=== PATIENT | female | born 1955 | race Caucasian/White ===

== ENCOUNTER → 2023-09-20 13:47 | Outpatient (REF) | payer MEDICARE, OTHER, SELFPAY | LOC: WDC 13:47 | PROVIDERS: ATTENDING PHYSICIAN Family Medicine | DX: M81.0 Age-related osteoporosis without current pathological fracture (principal); Z12.31 Encounter for screening mammogram for malignant neoplasm of breast | CPT/HCPCS: 77063; 77067; 77080 ==

== ENCOUNTER → 2023-11-08 13:49 | Outpatient (REF) | payer MEDICARE, OTHER, SELFPAY | LOC: RCS 13:49 | PROVIDERS: ATTENDING PHYSICIAN Internal Medicine Interventional Cardiology; FAMILY PHYSICIAN Family Medicine | DX: I10 Essential (primary) hypertension (principal) | CPT/HCPCS: 93306 ==

== ENCOUNTER → 2023-11-30 10:09 | Outpatient (REF) | payer MEDICARE, OTHER, SELFPAY ==
[2023-11-30 11:25] LABS: % Basophils 0.8 % (0-2); % Eosinophils 1.1 % (0-6); % Immature Granulocytes 0.4 % (0-0.5); % Monocytes 11.7 % (1.7-9.3); Absolute Basophils 0.1 10^3/uL (0-0.2); Absolute Eosinophils 0.1 10^3/uL (0-0.7); Absolute Lymphocytes 1.5 10^3/uL (1.2-3.4); Absolute Neutrophils 5.6 10^3/uL (1.4-6.5); Hematocrit 35.6 % (37.0-47.0); Hemoglobin 12.1 g/dL (12.0-16.0); Mean Corpuscular Hgb 31.3 pg (27.0-31.0); Mean Platelet Volume 8.4 fL (7.4-10.4); Nucleated Red Blood Cells % 0 %; Platelet Count 243 10^3/uL (130-400); Red Blood Cell Count 3.87 10^6/uL (4.20-5.40); Red Cell Dist. Width 12.3 % (11.5-14.5); White Blood Cell Count 8.3 10^3/uL (4.8-10.8)
[2023-11-30 12:09] LABS: ALT (SGPT) 18 U/L (0-35); AST (SGOT) 23 U/L (14-36); Albumin 4.3 g/dl (3.5-5.0); Alkaline Phosphatase 45 U/L (38-126); Blood Urea Nitrogen 9 mg/dl (7-17); Calcium 9.5 mg/dl (8.4-10.2); Carbon Dioxide 24 mmol/L (22-30); Chloride 100 mmol/L (98-107); Glucose 94 mg/dl (70-99); HDL Cholesterol 67 mg/dl; LDL Cholesterol, Calculated 68 mg/dl; Potassium 4.1 mmol/L (3.5-5.1); Sodium 134 mmol/L (135-145); Total Bilirubin 0.6 mg/dl (0.2-1.3); Total Cholesterol 164 mg/dl (50-199); Total Protein 6.2 g/dl (6.3-8.2); Triglyceride 149 mg/dl (10-149); Very Low Density Lipoprotein 29 mg/dl (0-30); eGFR > 60.00
[2023-11-30 12:48] LABS: Glycohemoglobin (HgbA1c) 6.1 % (4.0-5.6)
== END ==
LOC: REG 10:09
PROVIDERS: ATTENDING PHYSICIAN Internal Medicine Interventional Cardiology; FAMILY PHYSICIAN Family Medicine; REFERRING PHYSICIAN Internal Medicine Critical Care Medicine
DX: I10 Essential (primary) hypertension (principal); Z01.812 Encounter for preprocedural laboratory examination; R91.8 Other nonspecific abnormal finding of lung field; R73.02 Impaired glucose tolerance (oral)
CPT/HCPCS: 36415; 80053; 80061; 83036; 85025

== ENCOUNTER → 2023-12-02 14:50 | Outpatient (REF) | payer MEDICARE, OTHER, SELFPAY | LOC: RAD 14:50 | PROVIDERS: ATTENDING PHYSICIAN Internal Medicine Gastroenterology; FAMILY PHYSICIAN Family Medicine | DX: K57.92 Diverticulitis of intestine, part unspecified, without perforation or abscess without bleeding (principal) | CPT/HCPCS: 74177; Q9967 ==

== ENCOUNTER → 2023-12-07 12:42 | Outpatient (REF) | payer MEDICARE, OTHER, SELFPAY ==
[2023-12-07 15:41] LABS: INR 1.06; PT 13.8 Sec (11.4-14.6)
[2023-12-07 15:42] LABS: APTT 32.7 Sec (23.4-35.0)
== END ==
LOC: RAD 12:42
PROVIDERS: ATTENDING PHYSICIAN Internal Medicine Critical Care Medicine; FAMILY PHYSICIAN Family Medicine
DX: R93.89 Abnormal findings on diagnostic imaging of other specified body structures (principal); R91.8 Other nonspecific abnormal finding of lung field; Z01.812 Encounter for preprocedural laboratory examination
CPT/HCPCS: 36415; 71250; 85610; 85730

== ENCOUNTER 2023-12-14 06:27 | Day surgery (SDC) | payer MEDICARE, OTHER, SELFPAY ==
[2023-12-14] VITALS (11 sets, daily range): BP systolic 121–153; BP diastolic 59–84; BMI 18.3
--- NOTE | 2023-12-14 11:45 | PTCARENOTE ---
Patients ideal body weight is 128 lbs. Patient did IS and her volume was 4000. Patient appears extremely nervous at times. Patient is tearful. Patient states that she is a smoker and would like to quit. Patient provided smoking cessation information
and given a pamphlet from respiratory therapist Carito. Daughter is at the bedside. Will monitor patient.
== END 2023-12-14 16:41 | disposition home or self-care (01) ==
LOC: GI 06:27
PROVIDERS: ATTENDING PHYSICIAN Internal Medicine Critical Care Medicine
DX: C34.31 Malignant neoplasm of lower lobe, right bronchus or lung (principal); R91.8 Other nonspecific abnormal finding of lung field
CPT/HCPCS: 31629; 31628; 31623; 31624; 31627; 31654; 88172; 88173; 88305; 88312; 71045; 76000; 87015; 87070; 87102; 87116; 87205; 88112; 88177; 88333; 94640; C1887

== ENCOUNTER 2024-01-12 08:05 | Inpatient (IN) | payer MEDICARE, OTHER, SELFPAY ==
[2024-01-06 12:24] VITALS: BMI 18.9
[2024-01-06 13:14] LABS: % Basophils 0.4 % (0-2); % Eosinophils 0.3 % (0-6); % Immature Granulocytes 0.3 % (0-0.5); % Lymphocytes 10.1 % (20.5-51.1); % Monocytes 7.3 % (1.7-9.3); % Neutrophils 81.6 % (42.2-75.2); Absolute Monocytes 0.7 10^3/uL (0.1-0.6); Absolute Neutrophils 8.2 10^3/uL (1.4-6.5); Hematocrit 34.7 % (37.0-47.0); Hemoglobin 11.9 g/dL (12.0-16.0); Mean Corp Hgb Conc. 34.3 g/dL (33.0-37.0); Mean Corpuscular Hgb 30.6 pg (27.0-31.0); Mean Corpuscular Volume 89.2 fL (81.0-99.0); Nucleated Red Blood Cells % 0 %; Platelet Count 261 10^3/uL (130-400); Red Blood Cell Count 3.89 10^6/uL (4.20-5.40); Red Cell Dist. Width 12.5 % (11.5-14.5)
[2024-01-06 13:22] LABS: Urine Albumin Negative (Neg - Trace); Urine Bilirubin Negative (Negative); Urine Character Clear (Clear); Urine Color Yellow; Urine Glucose Negative (Negative); Urine Ketone Negative (Negative); Urine Leukocyte Negative (Negative); Urine Nitrite Negative (Negative); Urine Occult Blood 2+ (Negative); Urine Specific Gravity 1.005 (<1.030); Urine Urobilinogen Negative (Neg - 1+); Urine pH 6.5 (5.0-9.0)
[2024-01-06 13:24] LABS: INR 1.07; PT 13.7 Sec (11.4-14.6)
[2024-01-06 13:25] LABS: APTT 30.2 Sec (23.4-35.0)
[2024-01-06 13:30] LABS: ALT (SGPT) 22 U/L (0-35); AST (SGOT) 24 U/L (14-36); Albumin 4.8 g/dl (3.5-5.0); Alkaline Phosphatase 45 U/L (38-126); Blood Urea Nitrogen 9 mg/dl (7-17); Calcium 9.6 mg/dl (8.4-10.2); Carbon Dioxide 24 mmol/L (22-30); Chloride 95 mmol/L (98-107); Direct Bilirubin 0.3 mg/dl (0.0-0.4); Estimated Creatinine Clearance 63 ml/min; Glucose 105 mg/dl (70-99); Potassium 4.4 mmol/L (3.5-5.1); Sodium 128 mmol/L (135-145); Total Bilirubin 0.5 mg/dl (0.2-1.3); Total Protein 6.8 g/dl (6.3-8.2); eGFR > 60.00
[2024-01-06 13:56] LABS: Urine Red Blood Cell 0-2 /HPF (0-2); Urine White Cell None Seen /HPF (0-5)
--- NOTE | 2024-01-06 14:00 | CM ---
Chart reviewed. Met with the patient in PAT. Patient is independent of ADLS, lives alone in a [address] [facility], 1 [place], 0 DME. Patient is going to her daughters house after surgery [id number] [place] [address] Reviewed preoperative and
postoperative instructions and restrictions. Gave patient 2 soaps, along with showering guidelines. Patient is agreeable to a home visit by CT Transitional RN. Plan is for the patient to go to her daughters house with CT Transitional RN.
[2024-01-06 14:29] LABS: Glycohemoglobin (HgbA1c) 5.9 % (4.0-5.6)
[2024-01-12] VITALS (14 sets, daily range): BP systolic 106–162; BP diastolic 45–90; BMI 18.4
[2024-01-12 09:15] LABS: Blood Urea Nitrogen 8 mg/dl (7-17); Calcium 9.5 mg/dl (8.4-10.2); Carbon Dioxide 26 mmol/L (22-30); Chloride 101 mmol/L (98-107); Estimated Creatinine Clearance 72 ml/min; Glucose 95 mg/dl (70-99); Potassium 3.7 mmol/L (3.5-5.1); Sodium 135 mmol/L (135-145); eGFR > 60.00
--- NOTE | 2024-01-12 09:19 | CM ---
Patient in OR today for planned CT Surgery.
Reviewed initial assessment. Pt. resides alone in a 2 story home. She is functionally indep. at baseline w/ ADLs, mobility without use of any assisted device. She will be staying w/ dtr. at DC.
Antic. DC plan is for home w/ CT Transitional Care RN.
CM to follow.
--- NOTE | 2024-01-12 09:56 | PTCARENOTE ---
pt admitted to CVICU, pt states could not use chlorhexidine wash due to skin irritation and used Dial soap instead, ALINA Maynard aware. pt removed Nicotine patch off L upper arm. NPO since midnight. pt washed w/ CHG wipes. VS completed, weight completed.
admission interview completed. home meds reviewed. lab work drawn. Dr. Munoz at bedside to initial site.
[2024-01-12 13:18] LABS: Urine Albumin Negative (Neg - Trace); Urine Bilirubin Negative (Negative); Urine Character Clear (Clear); Urine Color Yellow; Urine Glucose Negative (Negative); Urine Ketone Trace (Negative); Urine Leukocyte Negative (Negative); Urine Nitrite Negative (Negative); Urine Occult Blood 4+ (Negative); Urine Specific Gravity 1.005 (<1.030); Urine Urobilinogen Negative (Neg - 1+)
[2024-01-12] MEDS: ANCEF 10 IV (13:33)
[2024-01-12] MEDS: ANCEF IV (13:33)
[2024-01-12 13:36] LABS: Urine Amorphous Seen
[2024-01-12 13:38] LABS: Urine Hyaline Cast 0-2 /LPF (0-2)
[2024-01-12 14:27] LABS: Glucose - POC 109 mg/dl (65-99); HCO3 - POC 24 mmol/L (21-29); Hematocrit - POC 28 % PCV (37-47); Hemodilution- POC Yes; Hemoglobin Calculated - POC 9.7; Ionized Calcium - POC 1.15 mmol/L (1.12-1.27); PCO2 - POC 67 mmHg (35-45); PO2 - POC 171 mmHg (80-100); Potassium - POC 3.3 mmol/L (3.6-5.0); Sodium - POC 140 mmol/L (135-145); pH - POC 7.17 (7.35-7.45)
[2024-01-12 15:12] LABS: Urine White Cell 0-2 /HPF (0-5)
--- NOTE | 2024-01-12 15:43 | W.PN.CT.SURG ---
CT Surgery Operative Note
-
THORACIC SURGERY OPERATIVE REPORT
Preoperative Diagnosis: Right lower lobe groundglass opacity, scant fragments of adenocarcinoma, ground glass opacity
Postoperative Diagnosis: Same
Procedure(s) Performed:
1. Robotic assisted thoracic surgery (RATS) right lower lobe superior segment extended wedge resection
2. Radical lymphadenectomy
3. Cryo nerve ablation of intercostal spaces 8, 7, 6, 5 with 2 minutes of freezing time each
4. Intercostal nerve block with 5 cc of bupivacaine in each space, 8, 7, 6, 5
Date of Surgery: 01/12/2024
Comorbidities:
1. Moderate emphysema and pulmonary dysfunction, DLCO 57%
2. Active tobacco abuse
3. Malnourished
4. Chronic pain syndrome
5. Anxiety and depression
6. Fibromyalgia
7. Asthma
8. EGD/GERD
9. Diverticulitis
10. Arthritis
11. Raynaud's syndrome
12. Parotiditis
13. Hyperlipidemia
10. Chronic neck and upper back pain
Attending Surgeon: Branden Munoz MD, MS
Assistants: Coleen Ray PA-C (present and necessary to first helper, exchanging robotic instruments, retraction, suction, exposure, suture management, and wound closure under my direction) & Branden Loja PA-C
Anesthesiology: Rustam Gonzalez MD and Nury Mesa CRNA
Scrub and Circulating RNs: An Sorto RN, Brooke Bae RN
Anesthesia: Dual Lumen GETA
EBL: 100 cc
Products: None
Indication(s) for Procedures: This is a 68-year-old female with multiple pulmonary nodules. She underwent recent endoluminal robotic assisted bronchoscopy with EBUS and biopsy of the right upper lobe groundglass opacity/cystic mass demonstrated
adenocarcinoma. Presented diagnosis is adenocarcinoma in situ as there is no obvious solid component. She is an active smoker and was counseled preoperatively to quit smoking. Given the lesion, and her poor pulmonary status, she was offered a
extended wedge resection with a 1 cm margin of the right lower lobe superior posterior lateral segment. She accepted the risk of surgery and so we move forward.
Findings: Her tissue quality was quite poor. There is evidence of chronic smoke inhalation with staining of all 3 lobes. The fissures were relatively well-developed but hypervascular. No obvious lesion was able to be identified on the superficial
surface of the right lower lobe. However based upon CT markings, I performed a very large extended wedge resection along the superior, lateral, posterior segment of the right lower lobe. This was done with multiple loads of green staplers. This
was extracted from the chest cavity and sent for pathological frozen section. Frozen section revealed adenocarcinoma. Further evaluation will be done to confirm whether this is adenocarcinoma in situ versus adenocarcinoma. Of note I was unable to
palpate any solid component once the specimen was out of the chest. The margin was approximately 1 cm including the staple line. Multiple lymph nodes were taken however she only had scant lymph nodes visible. There is no obvious air leak at the
inclusion of the case. There was no loss of tidal volume at the inclusion of the case. Both the raw oblique fissure and staple line was reinforced with pro gel.
Specimen(s):
Station 9, x 1 nodes
Station 8, x 1 nodes
Station 10, x 3 nodes
Station 4, x 1 nodes
Station 7, x 2 nodes
Right lower lobe super/lateral/posterior segment, extended wedge
Description of Procedure: The patient was taken to the operating room. Induction via general anesthesia with endotracheal intubation was performed and peripheral venous access and arterial monitoring were inserted. Their identity and procedure to be
performed were verified and they were positioned with the right side up on the operating table. The patient was then prepped and draped in a sterile fashion. A preoperative time-out was performed with all members of the team present. A Veress
needle was used to insufflate the chest after isolating the lung. An 8 mm port was placed in the midaxillary line at approximately the eighth intercostal space and confirmed to be intrathoracic without significant pulmonary injury. The chest was
surveyed for any evidence of metastatic disease. Patient tolerate insufflation without complication. 2 additional 12 mm trocars were placed on either side under camera guidance and a third 8 mm trocar was placed along the back. A 12 mm grants and contracts assistant
port was placed in the 11th intercostal space above the insertion of the diaphragm. An intercostal nerve block was performed at intercostal spaces 5 through 8.
The thoracic cavity was inspected for evidence of metastatic disease. None was observed. We started with mobilization of the inferior pulmonary ligament. I then developed the oblique fissure between the right lower lobe and the right upper lobe.
Based upon the CT markings, I used the bipolar cautery to laura out an extended wedge segment. This was taken with multiple green load staplers. Specimen was then placed into a small anchor bag and extracted from the chest cavity. It was sent for
intraoperative frozen section which confirmed adenocarcinoma. We worked our way clockwise dissecting out the hilum and harvest any lymph nodes identified. Cryoablation was performed at the above listed intercostal spaces. A chest tube was inserted
and placed laterally towards the apex. Pro-gel was used to reinforce the staple lines, hilum, and raw surface of the oblique fissure. Fibrillar was packed around the hilum. After confirming hemostasis, the lung was fully inflated and all ports were
removed. Incisions were closed in 3 layers including the fascia, dermal, and epidermis. Additional local anesthesia was injected into all incision sites. The skin wound was cleansed and sealed with Dermabond glue.
All instrument, sponge, and needle counts were confirmed to be correct x 2 at the end of the operation. The patient was transferred to the cardiac intensive care unit extubated in critical but stable condition.
I, Dr. Branden Munoz, was present, scrubbed for, and performed all critical elements of this procedure.
Branden Munoz MD, MS
Cardiothoracic Surgeon
[facility]
This operative dictation was created using the [employer] dictation system. Please excuse any grammatical, typographical, or 'sound alike' errors
--- NOTE | 2024-01-12 16:13 | CON.INTV ---
Consultation
Consultation Request
Date/Time Consultation Requested: 01/12/2024 - 1551
Date/Time Consultation Performed: 01/12/2024 - 1610
Requesting Provider: Aleyda Mae PA-C
Performing Provider: Geronimo Rodríguez MD
Reason for Consultation: post-op wedge resection
Medical History
-
Chief Complaint: Elective RLL wedge resection
History of Present Illness:
68-year-old F active tobacco smoker with 0.5PPD with PMHx of emphysema, asthma, GERD, bilateral pulmonary nodules, chronic pain, GERD, PUD and Hx of lupus who p/w elective RLL superior segment extended wedge resection. She follows us in [facility]
office, and sees Dr. Aceves. PFT done on 11/23/2023 showed a mild obstructive lung defect with a moderate diffusion capacity defect (DLco: 57%). She is managed on Breo 200mcg for her asthma Sx, and is doing well on that. She had a LDCT Chest in
06/2023 showing bilateral lung nodules with largest measuring 2cm GGO in RLL, and a 13mm BYRON SPN. There was no mediastinal/hilar LN seen. Subsequent PET/CT on 09/19/2023 showed mild FDG avidity (SUV max: 2.9, 2.7 on delayed) in the BYRON 13mm nodule.
The 2cm RLL GGO was mildly FDG avid with a SUV max of 1.5, increasing to 1.7 on delayed imaging. She agreed to robotic bronchoscopy, and this was performed on 12/14/2023 with a BYRON and RLL biopsy by Dr. Shultz. BYRON TBNA showed atypical cells, but
no malignancy. RLL brushing + forceps Bx showed adenocarcinoma (scant adeno on biopsy). She was referred to Cardiothoracic surgery, and saw Dr. Munoz on 12/29/2023. Robotic assisted surgical lung resection was recommended, and the risks and
benefits were discussed in detail. Today she underwent robotic assisted thoracic surgery with RLL superior segment extended wedge resection, with a radical lymphadenectomy. Procedure went well with no immediate complications, EBL 100cc and she
was TRX to CVICU post-operatively after being in PACU. Critical care services now consulted for additional management/recommendations.
When I saw the pt she was already extubated, she was sleepy but answering my questions appropriately. HR 85, BP via L-radial A-line was 187/77, and she was saturating 99% on 2L/min NC. She complained of a headache. She otherwise felt fine, just
mainly tired. No chest pain reported, no SOB, abd pain, N/V/back pain, f/c.
PMHx: Newly diagnosed RLL adenocarcinoma via robotic bronchoscopy on 12/14/2023; asthma on Breo 200mcg, centrilobular/paraseptal emphysema, bilateral pulmonary nodules, AV-block (1st and 2nd degree), chronic pain (neck and back), fibromyalgia,
anxiety/depression, Hx of discoid lupus erythematosus, HTN, PUD, GERD, Hx of diverticulitis, arthritis, Raynaud's phenomenon, leukoaraiosis, tobacco use, diverticulosis, adnexal cyst, post-menopausal bone loss
PSHx: Ectopic rupture surgery, tonsillectomy, tubal ligation, bunionectomy (left foot), hysterectomy, cervical spine fusion (C5-7)
Past Medical History
Past Medical History: Other (above as per HPI)
Past Surgical History: Other (above as per HPI)
Social History
Tobacco: Smoker
Alcohol: None
Drug: None
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
Family History
Family History: CAD (Father + mother), Cancer (Maternal grandmother + aunt: Breast cancer; Mother: stomach cancer), Diabetes (Maternal grandfather; Maternal aunt and uncle), Hypertension (Maternal grandfather + maternal grandmother) and Other
(Mother: Lupus; Daughter: Stroke/TIA)
Allergies / Home Medications
Allergies
Allergy/AdvReac Type Severity Reaction Status Date / Time
Sulfa (Sulfonamide Allergy GI UPSET Verified 01/03/24 14:26
Antibiotics)
Home Medications
�Medication �Instructions �Recorded �Confirmed �Last Taken �Type
acetaminophen 500 mg tablet 1,000 mg PO BID 12/08/23 01/12/24 01/11/24 20:00 History
albuterol sulfate 90 mcg/actuation 2 puff inhalation 6XD PRN REACTIVE 12/08/23 01/12/24 12/14/23 07:45 History
aerosol inhaler (ProAir HFA) AIRWAY DISEASE
atenolol 50 mg tablet 50 mg PO BID 12/08/23 01/12/24 01/11/24 17:00 History
esomeprazole magnesium 40 mg 40 mg PO DAILY 12/08/23 01/12/24 01/11/24 09:00 History
capsule,delayed release (Nexium)
fluticasone furoate 200 1 inh inhalation QPM 12/08/23 01/12/24 01/11/24 19:00 History
mcg-vilanterol 25 mcg/dose
inhalation powder (Breo Ellipta)
hydroxychloroquine 200 mg tablet 200 mg PO BID 12/08/23 01/12/24 01/04/24 18:00 History
(Plaquenil)
losartan 25 mg tablet 25 mg PO BID 12/08/23 01/12/24 01/09/24 19:00 History
oxycodone-acetaminophen 5 mg-325 0.5 tab PO DAILY PAIN 12/08/23 01/12/24 01/11/24 11:00 History
mg tablet (Percocet)
prednisone 5 mg tablet 5 mg PO DAILY 12/08/23 01/12/24 01/11/24 10:00 History
zaleplon 10 mg capsule 10 mg PO HS 12/08/23 01/12/24 01/11/24 22:00 History
guaifenesin 400 mg tablet 400 mg PO TID 01/03/24 01/12/24 01/11/24 22:00 History
lorazepam 0.5 mg tablet 0.25 mg PO DAILY PRN anxiety 01/03/24 01/12/24 Unknown History
polyethylene glycol 3350 17 gram 17 g PO DAILY 01/03/24 01/12/24 01/10/24 21:00 History
oral powder packet (Miralax)
amoxicillin 875 mg-potassium 1 tab PO BID 01/12/24 01/12/24 01/11/24 21:00 History
clavulanate 125 mg tablet
Review of Systems
-
History Source: Patient
All other systems: Negative unless noted
Vitals / Labs / Diagnostic Testing
Vital Signs
Temp Pulse Resp BP Pulse Ox
98 F 88 18 147/90 100
01/12/24 08:51 01/12/24 08:51 01/12/24 08:51 01/12/24 08:51 01/12/24 08:51
Lab Data
01/06/24 12:55
01/12/24 08:38
Diagnostic Testing:
Physical Exam
-
HEENT: Normocephalic and Anicteric
Cardiovascular: S1/S2 and Peripheral Edema (negative)
Respiratory: Wheeze (negative), Rales (Right base) and Rhonchi (negative)
GI: Soft, Non Distended, Non Tender and Normal Bowel Sounds
Neurology: Awake, Tremors (negative) and Other (sleepy from recent sedation, but following all commands and answering my questions appropriately)
Skin: Warm and Dry
General: Respiratory Distress (negative) and Comfortable
Assessment
-
Assessment: 68-year-old F active tobacco smoker with 0.5PPD with PMHx of emphysema, asthma, GERD, bilateral pulmonary nodules, chronic pain, GERD, PUD and Hx of lupus who p/w elective RLL superior segment extended wedge resection. She follows us
in [facility] office, and sees Dr. Aceves. LDCT Chest imaging done in June 2023 showed several suspicious lung nodules, mainly a 1.3cm BYRON solitary pulmonary nodule (SPN), and a RLL 2cm cystic-GGO. They were mildly FDG avid on whole body PET-CT,
and no evidence of distant mets or hilar/mediastinal LN. She underwent robotic bronchoscopy and RLL tissue collected was positive for adenocarcinoma. She now presents with surgical resection of this localized tumor. On 01/12/2024, she underwent
robotic assisted thoracic surgery with RLL superior segment extended wedge resection, with a radical lymphadenectomy. Procedure went well with no immediate complications, EBL 100cc and she was TRX to CVICU post-operatively after being in PACU.
Critical care services now consulted for additional management/recommendations.
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
PUD, GERD, Hx of diverticulitis, arthritis, Raynaud's phenomenon, leukoaraiosis, tobacco use, diverticulosis, adnexal cyst, post-menopausal bone loss
Impression:
#RLL adenocarcinoma s/p robotic assisted thoracic surgery with RLL superior segment extended wedge resection, with a radical lymphadenectomy - POD#0
#Active tobacco use with centrilobular/paraseptal emphysema seen on CT chest
#Acute hypercapnic respiratory failure (as per blood gas when he was still in either the OR or PACU)
#Asthma and at high risk of developing COPD
#On chronic prednisone at 5mg daily
#Chronic neck and back pain
#Hx of DLE (discoid lupus erythematosus)
Plan:
She was already extubated to nasal cannula and she is breathing comfortably on 2L/min
Maintain SpO2 >90-94%
She takes Breo 200mcg at home --> use Symbicort 80mcg
Re-check blood gas in the AM to assure she is ventilating appropriately and that her pCO2 has normalized, in addition to her pH
Monitor chest tube output (right pleural chest tube which is currently on water seal)
Monitor hemoglobin
Monitor platelet count and coags
Transfuse blood products if needed to keep Hb>7g/dL, and plt>50k given recent surgery
CT surgery managing chest tube - currently on CWS --> if no PTX tomorrow's AM CXR then would clamp, re-check CXR 6 hours later at minimum, and if still no PTX and pt feels well without sudden hypoxia, then it's appropriate to remove the chest tube.
Defer to cardiothoracic surgery on timing of tube thoracostomy removal.
Replete electrolytes with K>4, Mg>2
Monitor blood sugar with goal BG 140-180mg/dL
Insulin SQ supplementation as needed to keep BG at goal as above - use ISS low resistance for now AC
She is currently on a clear liquid diet - ADAT
Continue home prednisone dose
Nicotine patch
Aspiration precautions
DVT prophylaxis
Early nutrition
Encourage IS use - q1hr while awake, at least 10x per hour for 4 hours total a day, and increase duratrion as pt clinically improves
Early mobilization as tolerated with PT/OT
(Patient was seen and evaluated on 01/12/2024).
Critical care statement: A total of 41 minutes of critical care time was provided for this patient today. This includes management of ventilator, spontaneous breathing trial, arterial blood gases, pressors, of unstable vital signs, evaluation of the
patient at bedside, reviewing the patient's pertinent medical records including radiographs, microbiology, laboratory evaluations, and discussion with primary team and critical care nursing.
Data:
CXR 01-12-2024: No acute cardiopulmonary process.
TTE 11-08-2023:
1. Normal left ventricular size and function, EF 62%
2. Mildly thickened mitral leaflets with trace mitral regurgitation
3. Normal aortic valve without stenosis or regurgitation
4. Normal right heart with normal pulmonary artery systolic pressure
There are no prior studies available for comparison.
[2024-01-12] MEDS: DILAUDID 0.5 MG IV ×2 (16:23→20:46)
--- NOTE | 2024-01-12 16:35 | SUR.PHASEI ---
A-Line reading 50 points higher then cuff line. Re-zeroed and remains high after pain medication. Pt anxious at times. Dr. Gonzalez in room and will give 5mg of Labetolol. Will continue to monitor
[2024-01-12] MEDS: DILAUDID 0.25 MG IV (16:37)
[2024-01-12] MEDS: TRANDATE 5 MG IV (16:40)
[2024-01-12] MEDS: TYLENOL PO (17:45)
[2024-01-12] MEDS: FLEXERIL PO (17:45)
[2024-01-12] MEDS: NEURONTIN PO (17:45)
[2024-01-12] MEDS: REGLAN 10 MG IV (18:31)
--- NOTE | 2024-01-12 18:40 | PTCARENOTE ---
Pt arrived to CVICU into room 2267 at 1700. Pt is awake, drowsy, and oriented. Pt with continued complaints of pain. Pt SR with HR 70's-80's. BP 123/68 MAP 85. A-line initially in place not correlating with cuff BP, CT CONSTRUCTION ECONOMIST aware. A-line d/c'd per
order. Pulse oximetry 99% on 2L nasal cannula. Right pleural chest tube to water seal, no sign of air leak, drainage serosanguineous. Crepitus surrounding chest tube insertion site, CT CONSTRUCTION ECONOMIST aware. Pt achieving 1000 with IS, continued use encouraged.
Pt with nausea, Reglan administered. Pt refused PO medications due to nausea at this time. Incision sites approximated with surgical adhesive. Pt currently resting in bed with call pardo within reach and daughter at bedside.
[2024-01-12] MEDS: SYMBICORT 160/4.5 MCG INHALER 2 PUFF INH (19:16)
[2024-01-12] MEDS: ANCEF 5 IV (19:48)
[2024-01-12] MEDS: SENOKOT-S 1 TABLET PO (19:48)
[2024-01-12] MEDS: ROBITUSSIN 400 MG PO (20:54)
[2024-01-12] MEDS: FLEXERIL 5 MG PO (20:54)
[2024-01-12] MEDS: NEURONTIN 300 MG PO (20:54)
[2024-01-12] MEDS: TYLENOL 650 MG PO (20:54)
[2024-01-12] MEDS: ROXICODONE 5 MG PO (21:14)
[2024-01-12] MEDS: ZOFRAN 4 MG IV (21:18)
[2024-01-13] VITALS (14 sets, daily range): BP systolic 112–157; BP diastolic 54–81; BMI 18.9
[2024-01-13] MEDS: ROXICODONE 5 MG PO ×5 (01:14→20:06)
[2024-01-13] MEDS: REGLAN 10 MG IV ×2 (01:21→07:56)
[2024-01-13] MEDS: TORADOL 15 MG IV ×3 (04:44→18:12)
[2024-01-13 04:55] LABS: Venous Blood Gas B.E. -3.1 mmol/L (-4 to +4); Venous Blood Gas HCO3 23.6 mmol/L (22-27); Venous Blood Gas O2 Sat % 88.5 %; Venous Blood Gas pCO2 49 mmHg (35-48); Venous Blood Gas pH 7.29 (7.32-7.43); Venous Blood Gas pO2 55 mmHg (30-50)
[2024-01-13 04:57] LABS: Venous Blood Gas O2 Therapy 2L/min
[2024-01-13] MEDS: TYLENOL 650 MG PO ×4 (05:02→22:16)
[2024-01-13 05:03] LABS: Hematocrit 27.3 % (37.0-47.0); Hemoglobin 9.4 g/dL (12.0-16.0); Mean Corp Hgb Conc. 34.4 g/dL (33.0-37.0); Mean Corpuscular Hgb 31.1 pg (27.0-31.0); Mean Corpuscular Volume 90.4 fL (81.0-99.0); Mean Platelet Volume 8.2 fL (7.4-10.4); Platelet Count 154 10^3/uL (130-400); Red Blood Cell Count 3.02 10^6/uL (4.20-5.40); Red Cell Dist. Width 12.5 % (11.5-14.5); White Blood Cell Count 9.7 10^3/uL (4.8-10.8)
[2024-01-13] MEDS: ANCEF 5 IV ×2 (05:03→12:51)
[2024-01-13] MEDS: ZOFRAN 4 MG IV (05:10)
[2024-01-13 05:52] LABS: Blood Urea Nitrogen 9 mg/dl (7-17); Calcium 7.8 mg/dl (8.4-10.2); Carbon Dioxide 24 mmol/L (22-30); Chloride 105 mmol/L (98-107); Estimated Creatinine Clearance 72 ml/min; Glucose 100 mg/dl (70-99); Potassium 4.1 mmol/L (3.5-5.1); Sodium 134 mmol/L (135-145); eGFR > 60.00
--- NOTE | 2024-01-13 06:34 | W.PN.CT ---
Today's Communication / Plan
-
-pod #1
-no significant issues overnight
-R pleur CT on water seal, no air leak noted, put out 90/120 in 12/24 hrs. Has some subcutaneous emphysema around incision
-follow daily CXR- no ptx
-will diurese - ordered 20 iv Lasix
-encourage IS, OOB
Assessment / Plan
-
- Right lower lobe ground glass opacity, scant fragments of adenocarcinoma- s/p Robotic assisted thoracic surgery (RATS) RLL superior segment extended wedge resection, radical lymphadenectomy on 01/12/[address] Munoz, pod #1
- Frozen section revealed adenocarcinoma. The thoracic cavity was inspected for evidence of metastatic disease. None was observed.
- B/l pulmonary nodules
- Moderate emphysema and pulmonary dysfunction, DLCO 57%
- Active tobacco abuse
- Hx 1st and 2nd degree AV block
- Malnourished (BMI 18.4)
- Chronic pain syndrome
- Anxiety and depression
- Fibromyalgia
- Lupus
- Asthma
- EGD/GERD
- Diverticulitis
- Arthritis
- Raynaud's syndrome
- Parotiditis
- Enlarged thyroid
- White matter dz (leukoariosis)
- Hyperlipidemia
- Chronic neck and upper back pain- s/p cervical fusion C5-7 (takes Percocet once a day)
- Mild preop anemia
- Acute postop atelectasis
Discussed patient care with: Nursing and Care Team
Subjective
Procedure
- s/p Robotic assisted thoracic surgery (RATS) right lower lobe superior segment extended wedge resection on 01/12/[address] Munoz
-
Date of Service: January 13, 2024
Objective Data
-
PT 13.7 Sec (11.4-14.6) 01/06/24 12:55
INR 1.07 01/06/24 12:55
APTT 30.2 Sec (23.4-35.0) 01/06/24 12:55
Vital Signs
Vital Signs
Temp Pulse Resp BP Pulse Ox
98 F 71 18 114/54 100
01/12/24 23:21 01/12/24 23:00 01/12/24 23:21 01/12/24 23:00 01/12/24 20:30
CT Intake/Output/Weight
01/12/24 01/12/24 01/13/24
06:59 18:59 06:59
Intake Total 100 / 100
Output Total
Balance 70 / 70
SaO2: 100
Physical Exam
-
General: AOx3
Cardiovascular: Regular rate & rhythm, No Murmurs and No Rub
Respiratory: Decreased Breath Sounds (crackles on R side, clear on L)
Incision: Clean, Dry and Intact (palpable subcutaneous emphysema at lateral chest wall)
Extremities: No Edema (2+ DP b/l)
Data Reviewed
-
Lab Results: Results Reviewed
Medications: Active Meds Reviewed
Chest X-Ray: Report Reviewed and Image Reviewed
ECG: Report Reviewed and Image Reviewed
[2024-01-13] MEDS: FLEXERIL 5 MG PO ×3 (06:45→22:16)
[2024-01-13] MEDS: LASIX 20 MG IV (06:56)
[2024-01-13] MEDS: SYMBICORT 160/4.5 MCG INHALER INH ×2 (07:29→17:20)
--- NOTE | 2024-01-13 08:00 | PTCARENOTE ---
pt received from previous RN, oriented, OOB in chair. anxious at times. SR on the monitor, HR 60-70s. SBP 120-150s. palpable pulses, no edema. pt on 2LNC, 100% POX. lungs diminished in R base. IS encouraged. CTx1 to WS, no air leak, +crepitus around
site, MOTOR VEHICLE LICENCE EXAMINER aware. pt voids on BSC. +BS. +nausea, PRN Reglan given as ordered. chest tube site old drainage. surgical site ARTIFICIAL INTELLIGENCE SPECIALIST, approximated. PIV x2. see worklist for VS, I&O, and assessment.
[2024-01-13] MEDS: DELTASONE 5 MG PO (08:34)
[2024-01-13] MEDS: NICODERM TRANSDERMAL 21 MG TRANSDERM (08:34)
[2024-01-13] MEDS: MIRALAX PO (08:34)
[2024-01-13] MEDS: HEPARIN 5000 UNITS SC ×2 (08:34→20:07)
[2024-01-13] MEDS: PROTONIX 40 MG PO (08:34)
[2024-01-13] MEDS: THERAGRAN 1 TABLET PO (08:34)
[2024-01-13] MEDS: TENORMIN 50 MG PO ×2 (08:34→20:07)
[2024-01-13] MEDS: SENOKOT-S 1 TABLET PO ×2 (08:34→20:07)
[2024-01-13] MEDS: ROBITUSSIN 400 MG PO ×3 (08:34→22:16)
--- NOTE | 2024-01-13 09:00 | PTCARENOTE ---
pt placed back to bed. CT dc'd by SARI Marrero, dressing c/d/i. OOB in chair for breakfast.
--- NOTE | 2024-01-13 12:30 | PTCARENOTE ---
pt VSS, pt ambulating in room w/ stand by assist. daughter at bedside. voiding in bathroom. IS encouraged, 500ml.
[2024-01-13] MEDS: AUGMENTIN 875 MG/125 MG 1 TABLET PO ×2 (12:52→20:07)
[2024-01-13] MEDS: SYMBICORT 160/4.5 MCG INHALER 2 PUFF INH (14:47)
[2024-01-13] MEDS: FLEXERIL PO (15:17)
--- NOTE | 2024-01-13 15:19 | PTCARENOTE ---
Assumed care of pt @ 1500. Pt AAOx3. NSR on monitor technician. Room air, SaO2 100%. Pt assisted back to bed from chair. Dressing on right lateral chest from CT removal CDI. PRN oxy given for 7/10 pain. Daughter at bedside. Call pardo within reach.
--- NOTE | 2024-01-13 15:20 | CM ---
CM following for DC planning needs.
Met w/ patient, dtr. at bedside.
Pt. reports that she is feeling well and hopeful for DC soon. Observed pt. ambulating ad derek around room.
Pt. will be staying @ daughter's home [address] ALINA Salcedo upon DC for a period of time. Dtr./Katie cell# [phone]; pt. cell# [phone].
Reviewed post op MD appointments, Cardiac Rehab and visit from CT Transitional Care RN.
Plan for DC to dtr. home w/ CT Transitional Care RN once stable.
CM to follow.
--- NOTE | 2024-01-13 15:20 | W.PN.PUL3 ---
Today's Communication / Plan
-
Doing well postoperative day 1
Continue postoperative care
Analgesia
As needed nebulizers
Smoking cessation
Outpatient pulmonary follow-up with Dr. Aceves after discharge
Assessment
-
Assessment: 68-year-old F active tobacco smoker with 0.5PPD with PMHx of emphysema, asthma, GERD, bilateral pulmonary nodules, chronic pain, GERD, PUD and Hx of lupus who p/w elective RLL superior segment extended wedge resection. She follows us
in [facility] office, and sees Dr. Aceves. LDCT Chest imaging done in June 2023 showed several suspicious lung nodules, mainly a 1.3cm BYRON solitary pulmonary nodule (SPN), and a RLL 2cm cystic-GGO. They were mildly FDG avid on whole body PET-CT,
and no evidence of distant mets or hilar/mediastinal LN. She underwent robotic bronchoscopy and RLL tissue collected was positive for adenocarcinoma. She now presents with surgical resection of this localized tumor. On 01/12/2024, she underwent
robotic assisted thoracic surgery with RLL superior segment extended wedge resection, with a radical lymphadenectomy. Procedure went well with no immediate complications, EBL 100cc and she was TRX to CVICU post-operatively after being in PACU.
Critical care services now consulted for additional management/recommendations.
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
PUD, GERD, Hx of diverticulitis, arthritis, Raynaud's phenomenon, leukoaraiosis, tobacco use, diverticulosis, adnexal cyst, post-menopausal bone loss
Impression:
#RLL adenocarcinoma s/p robotic assisted thoracic surgery with RLL superior segment extended wedge resection, with a radical lymphadenectomy - POD#0
#Active tobacco use with centrilobular/paraseptal emphysema seen on CT chest
#Acute hypercapnic respiratory failure (as per blood gas when he was still in either the OR or PACU)
#Asthma and at high risk of developing COPD
#On chronic prednisone at 5mg daily
#Chronic neck and back pain
#Hx of DLE (discoid lupus erythematosus)
Plan:
Doing well postoperatively.
Oxygen has been weaned off
Chest tube was discontinued
Pain is relatively well-controlled
Denies shortness of breath
Not bronchospastic on exam.
Incentive spirometry
Monitor hemoglobin
Monitor platelet count and coags
Transfuse blood products if needed to keep Hb>7g/dL, and plt>50k given recent surgery
CT surgery managing chest tube - currently on CWS --> if no PTX tomorrow's AM CXR then would clamp, re-check CXR 6 hours later at minimum, and if still no PTX and pt feels well without sudden hypoxia, then it's appropriate to remove the chest tube.
Defer to cardiothoracic surgery on timing of tube thoracostomy removal.
Replete electrolytes with K>4, Mg>2
-
Not bronchospastic on exam
Restart inhalers upon discharge
As needed nebulizers
Smoking cessation continues to be encouraged.
Nicotine patch
Hopefully discharge in the next 24 hours
No additional recommendation from the pulmonary perspective
Follow-up with Dr. Aceves in March as previously scheduled.
Sign off
Subjective Data
-
Date of Service:
Date of Service: January 13, 2024
Chief Complaint: Pulmonary Follow Up (Status post robotic assisted wedge resection.)
Subjective:
Patient states that chest pain has improved after chest tube has been discontinued
Denies shortness of breath at rest
Denies any significant cough or phlegm production
Review of Systems
General: Fever (n)
Cardiopulmonary: Dyspnea (n), Cough, Sputum Production (n) and Wheezing (n)
GI: Abdominal Pain (n) and Nausea (n)
Objective Data
Data Reviewed
Vital Signs / I&O / Oxygen:
Vital Signs
Temp Pulse Resp BP Pulse Ox
98.4 F 70 18 149/74 100
01/13/24 15:08 01/13/24 15:06 01/13/24 15:08 01/13/24 15:06 01/13/24 15:08
Intake and Output
01/12/24 01/13/24 01/14/24
06:59 06:59 06:59
Intake Total 100 / 100
Output Total 920 / 1330 740 / 740
Balance -820 / -1230 -740 / -740
SaO2 100
Nasal Cannula flow liters per 2
minute
Physical Exam
General: Respiratory Distress (n) and Comfortable
HEENT: Normocephalic
Cardiovascular: S1-S2
Respiratory: Clear and Non-Labored Respirations
GI: Soft and Non Distended
Neurology: Awake and Alert
Skin: Warm
Labs/Micro/Reports
Lab Data
01/13/24 04:50
01/13/24 04:50
[2024-01-14] MEDS: ROXICODONE 5 MG PO ×3 (00:06→10:22)
[2024-01-14 00:47] VITALS: BP 133/62
[2024-01-14 04:00] VITALS: BP 128/74
[2024-01-14] MEDS: TYLENOL 650 MG PO ×2 (05:00→10:22)
[2024-01-14 06:00] VITALS: BMI 18.8
--- NOTE | 2024-01-14 06:34 | W.PN.CT ---
Today's Communication / Plan
-
-pod #2
-no issues overnight
-R CT dcd on 01/12 with small residual ptx
-follow CXR
-continue to ambulate
-possible d/c soon
Assessment / Plan
-
- Right lower lobe ground glass opacity, scant fragments of adenocarcinoma- s/p Robotic assisted thoracic surgery (RATS) RLL superior segment extended wedge resection, radical lymphadenectomy on 01/12/[address] Munoz, pod #2
- Frozen section revealed adenocarcinoma. The thoracic cavity was inspected for evidence of metastatic disease. None was observed.
- B/l pulmonary nodules
- Moderate emphysema and pulmonary dysfunction, DLCO 57%
- Active tobacco abuse
- Hx 1st and 2nd degree AV block
- Malnourished (BMI 18.4)
- Chronic pain syndrome
- Anxiety and depression
- Fibromyalgia
- Lupus
- Asthma
- EGD/GERD
- Diverticulitis
- Arthritis
- Raynaud's syndrome
- Parotiditis
- Enlarged thyroid
- White matter dz (leukoariosis)
- Hyperlipidemia
- Chronic neck and upper back pain- s/p cervical fusion C5-7 (takes Percocet once a day)
- Mild preop anemia
- Acute postop blood loss anemia
- Acute postop atelectasis
- Acute postop small R ptx
Discussed patient care with: Nursing and Care Team
Subjective
Procedure
- s/p Robotic assisted thoracic surgery (RATS) right lower lobe superior segment extended wedge resection on 01/12/[address] Munoz
-
Date of Service: January 14, 2024
Objective Data
-
Lab Results
01/13/24 04:50
01/13/24 04:50
PT 13.7 Sec (11.4-14.6) 01/06/24 12:55
INR 1.07 01/06/24 12:55
APTT 30.2 Sec (23.4-35.0) 01/06/24 12:55
Vital Signs
Vital Signs
Temp Pulse Resp BP Pulse Ox
98.4 F 64 18 139/73 100
01/13/24 15:08 01/13/24 23:00 01/13/24 15:08 01/13/24 22:12 01/13/24 15:08
CT Intake/Output/Weight
01/13/24 01/13/24 01/14/24
06:59 18:59 06:59
Output Total 890 / 1330 740 / 740
Balance -890 / -1230 -740 / -740
SaO2: 100
Physical Exam
-
General: AOx3
Cardiovascular: Regular rate & rhythm, No Murmurs and No Rub
Respiratory: Decreased Breath Sounds (crackles on R side, clear on L)
Incision: Clean, Dry and Intact, no palpable subcut emphysema
Extremities: No Edema (2+ DP b/l)
Data Reviewed
-
Lab Results: Results Reviewed
Medications: Active Meds Reviewed
Chest X-Ray: Report Reviewed and Image Reviewed
[2024-01-14] MEDS: SYMBICORT 160/4.5 MCG INHALER 2 PUFF INH (08:12)
[2024-01-14 08:37] VITALS: BP 110/51
[2024-01-14] MEDS: PROTONIX 40 MG PO (08:40)
[2024-01-14] MEDS: SENOKOT-S 1 TABLET PO (08:40)
[2024-01-14] MEDS: AUGMENTIN 875 MG/125 MG 1 TABLET PO (08:40)
[2024-01-14] MEDS: FLEXERIL 5 MG PO (08:40)
[2024-01-14] MEDS: HEPARIN 5000 UNITS SC (08:41)
[2024-01-14] MEDS: TENORMIN 50 MG PO (08:41)
[2024-01-14] MEDS: DELTASONE 5 MG PO (08:41)
[2024-01-14] MEDS: ROBITUSSIN 400 MG PO (08:41)
[2024-01-14] MEDS: THERAGRAN 1 TABLET PO (08:41)
[2024-01-14] MEDS: MIRALAX 17 GRAMS PO (08:41)
[2024-01-14] MEDS: NICODERM TRANSDERMAL 21 MG TRANSDERM (08:49)
[2024-01-14 09:27] LABS: Hematocrit 31.3 % (37.0-47.0); Hemoglobin 10.8 g/dL (12.0-16.0); Mean Corp Hgb Conc. 34.5 g/dL (33.0-37.0); Mean Corpuscular Hgb 31.1 pg (27.0-31.0); Mean Corpuscular Volume 90.2 fL (81.0-99.0); Mean Platelet Volume 8.5 fL (7.4-10.4); Platelet Count 183 10^3/uL (130-400); Red Blood Cell Count 3.47 10^6/uL (4.20-5.40); Red Cell Dist. Width 12.7 % (11.5-14.5); White Blood Cell Count 8.1 10^3/uL (4.8-10.8)
--- NOTE | 2024-01-14 10:30 | PTCARENOTE ---
assumed care of pt from previous shift RN, sinus rhythm on tele, VSS. Dressing removed from surgical site, left KELL. Tolerating PO intake, voids spontaneously. PIV x2 flush easily. Labs sent as ordered. Pt medicated for pain. Ambulated in hallway
without difficulty.
--- NOTE | 2024-01-14 10:43 | PTCARENOTE ---
assumed care of pt from previous shift RN, sinus rhythm on tele w BBB, VSS, + peripheral pulses, +1 edema to bilateral lower extremities. epicardial pacing wire set to VVI 50/8. Lungs diminished, pox 94% on 4L NC. Coughing and deep breathing
encouraged, IS achieved up to 500. +bs, tolerating PO intake, dubon removed DTV. Received pt w CT x3- LP removed. Oh and bandar removed as instructed. Pt was medicated for pain. Assisted w cardiac rehab, walked in valenzuela. Plan of care reviewed w the
pt and questions encouraged.
--- NOTE | 2024-01-14 11:29 | W.DCSUMMARY ---
Discharge Summary
Discharge Data
Date of Admission: 01/12/24
Date of Discharge: 01/14/24
-
Pending Results: Yes (surgical pathology report pending)
Hospital Course
Primary care physician: Fernanda Manriquez
Outpatient cis[employer] certified internetwork expert: Carlos Moe
Inpatient consultants: Pulmonary medicine
Procedures:
1. Robotic assisted thoracic surgery (RATS) right lower lobe superior segment extended wedge resection. Radical lymphadenectomy, and cryo nerve ablation
Primary Diagnosis:
1. Right lower lobe groundglass opacity, scant fragments of adenocarcinoma
Secondary Diagnoses:
1. Moderate emphysema and pulmonary dysfunction, DLCO 57%
2. Active tobacco abuse
3. Malnourished
4. Chronic pain syndrome
5. Anxiety and depression
6. Fibromyalgia
7. Asthma
8. EGD/GERD
9. Diverticulitis
10. Arthritis
11. Raynaud's syndrome
12. Parotiditis
13. Hyperlipidemia
10. Lupus
HPI: 68-year-old female was electively admitted on 01/12/2024 for robotic assisted right lower lobe superior segmentectomy and radical lymph node dissection with cryo nerve ablation by Dr. Branden Munoz.
Hospital course: Frozen section was positive for adenocarcinoma and official surgical pathology report is pending at time of discharge.� Patient was extubated in the operating room and was recovered in the postanesthesia care unit, then transferred
to the CVICU on telemetry status with right pleural chest tube to [facility].� The right pleural chest tube was removed without difficulty on 01/12 and small right apical pneumothorax was seen on postprocedure film.� Patient was diuresed with 20 mg of
IV Lasix.� Chronic prednisone was resumed. Plaquenil will remain on hold until 01/30/2024. On 01/13, a small right apical pneumothorax was again noted on morning chest x-ray and remained unchanged from prior film.� Systolic blood pressure was
well-controlled at 110 mmHg and losartan was resumed preoperatively. Blood pressure will be monitored as outpatient and resumption of medication will be at discretion of patient's primary care provider. Patient was treated with Augmentin
preoperatively for parotiditis and this will continue to complete 10-day course on discharge (4 additional days). Patient will need to schedule outpatient follow-up appointment with pulmonary medicine.
Home medication changes:
Discharge Plan
-
Patient Disposition: Home (Routine Discharge)
Discharge Diagnosis/Procedures: RATS RLL segmentectomy & radical lymph node dissection
Condition: Good
Diet: No restrictions
Activity: No strenuous activity
Driving Restrictions: No driving for 2 weeks
Bathing Restrictions: OK to Shower
Others Tests: CXR (PA + lat) in 1 week
Referrals:
CT Transitional Care Nurse [Outside] (The Cardiothoracic Transitional Care Nurse will call you to set up a visit in 1-2 days.)
Carlos Moe MD [Active] - (As previously scheduled)
Fariba Manriquez DO [Family Provider] -
Branden Munoz MD [Active] - 01/25/24 1:45 pm
Prescriptions:
New
nicotine 21 mg/24 hr Patch 24 Hour
21 mg transdermal DAILY Qty: 28 0RF
cyclobenzaprine 10 mg Tablet
5 mg PO .TID prn Qty: 20 0RF
Continued
prednisone 5 mg Tablet
5 mg PO DAILY
acetaminophen 500 mg Tablet
1,000 mg PO BID
oxycodone-acetaminophen [Percocet] 5-325 mg Tablet
0.5 tab PO DAILY
Rx Instructions:
'I take 1/2 of a 5 mg tablet'
esomeprazole magnesium [Nexium] 40 mg Capsule,Delayed Release(Dr/Ec)
40 mg PO DAILY
zaleplon 10 mg Capsule
10 mg PO HS
atenolol 50 mg Tablet
50 mg PO BID
fluticasone furoate-vilanterol [Breo Ellipta] 200-25 mcg/dose Blister With Device
1 inh INHALATION QPM
albuterol sulfate [ProAir HFA] 90 mcg/actuation Hfa Aerosol Inhaler
2 puff INHALATION 6XD PRN (Reason: REACTIVE AIRWAY DISEASE)
lorazepam 0.5 mg Tablet
0.25 mg PO DAILY PRN (Reason: anxiety)
guaifenesin 400 mg Tablet
400 mg PO TID
polyethylene glycol 3350 [Miralax] 17 gram Powder In Packet
17 g PO DAILY
amoxicillin-pot clavulanate 875-125 mg Tablet
1 tab PO BID Qty: 0 0RF
Rx Instructions:
tx for infection in parotid gland on L per pt (started 01/05 evening) (10 day cycle)
Held
hydroxychloroquine [Plaquenil] 200 mg Tablet
200 mg PO BID
Hold Instructions: Resume on 01/30/24.
Discontinued
losartan 25 mg Tablet
25 mg PO BID
Discharge Orders:
Discharge Patient (As Directed); Ordered 01/14/24
Ordered By: Elida Mcdonald
Care Plan Goals
Care Plan Goals:
Problem: Readiness for enhanced knowledge related to diagnosis and treatment plan
Goal: Understand your diagnosis and treatment plan needs, including medications if applicable.
Instructions: Know your diagnosis, underlying causes and treatment plan options, including medications if applicable. Consult with your health care team to learn about your diagnosis and treatment plan, including medications if applicable.
Discharge Date and Time
Print Language: UPPER SORBIAN
[2024-01-14 12:41] VITALS: BP 108/64
--- NOTE | 2024-01-14 14:18 | PTCARENOTE ---
IV line and tele monitor removed. Pt wishes to shower at home. Discharge instructions, medication list and follow up appointments reviewed w the pt and her daughter. Questions encouraged.
== END 2024-01-14 15:02 | disposition home or self-care (01) | DRG 163 ==
LOC: CVICU 08:05
PROVIDERS: Nurse Practitioner; Physician Assistant Medical; ADMITTING PHYSICIAN Thoracic Surgery (Cardiothoracic Vascular Surgery); FAMILY PHYSICIAN Family Medicine; OTHER PHYSICIAN Internal Medicine Critical Care Medicine
PROC: 0BTF4ZZ Resection of Right Lower Lung Lobe, Percutaneous Endoscopic Approach (ICD-10-PCS; 2024-01-12)
PROC: 07T74ZZ Resection of Thorax Lymphatic, Percutaneous Endoscopic Approach (ICD-10-PCS; 2024-01-12)
PROC: 8E0W4CZ Robotic Assisted Procedure of Trunk Region, Percutaneous Endoscopic Approach (ICD-10-PCS; 2024-01-12)
DX: C34.31 Malignant neoplasm of lower lobe, right bronchus or lung (principal); E43 Unspecified severe protein-calorie malnutrition; J96.02 Acute respiratory failure with hypercapnia; J93.83 Other pneumothorax; Z68.1 Body mass index [BMI] 19.9 or less, adult; J98.11 Atelectasis; D62 Acute posthemorrhagic anemia; J43.8 Other emphysema; F17.210 Nicotine dependence, cigarettes, uncomplicated; G89.4 Chronic pain syndrome; F41.9 Anxiety disorder, unspecified; F32.A Depression, unspecified; M79.7 Fibromyalgia; K21.9 Gastro-esophageal reflux disease without esophagitis; I73.00 Raynaud's syndrome without gangrene; E78.5 Hyperlipidemia, unspecified; M19.90 Unspecified osteoarthritis, unspecified site; L93.0 Discoid lupus erythematosus; I10 Essential (primary) hypertension; Z79.51 Long term (current) use of inhaled steroids; Z79.52 Long term (current) use of systemic steroids; Z79.899 Other long term (current) drug therapy; Z98.1 Arthrodesis status
CPT/HCPCS: 88305; 88307; 88332; 32505; 36415; 64999; 71045; 80048; 80053; 81003; 81015; 82248; 82805; 83036; 85025; 85027; 85610; 85730; 86850; 86900; 86901; 86920; 87070; 88331; 93005; 93880; 94640; C2615; C2618

== ENCOUNTER → 2024-01-20 13:37 | Outpatient (REF) | payer MEDICARE, OTHER, SELFPAY | LOC: RAD 13:37 | PROVIDERS: ATTENDING PHYSICIAN Thoracic Surgery (Cardiothoracic Vascular Surgery); FAMILY PHYSICIAN Family Medicine | DX: J93.9 Pneumothorax, unspecified (principal) | CPT/HCPCS: 71046 ==

== ENCOUNTER → 2024-03-05 14:34 | Outpatient (REF) | payer MEDICARE, OTHER, SELFPAY | LOC: REG 14:34 | PROVIDERS: ATTENDING PHYSICIAN Internal Medicine Interventional Cardiology; FAMILY PHYSICIAN Family Medicine | DX: R06.09 Other forms of dyspnea (principal) | CPT/HCPCS: 71046 ==

== ENCOUNTER → 2024-10-01 13:43 | Outpatient (REF) | payer MEDICARE, OTHER, SELFPAY | LOC: HWRAD 13:43 | PROVIDERS: ATTENDING PHYSICIAN Internal Medicine Critical Care Medicine; FAMILY PHYSICIAN Family Medicine | DX: R93.89 Abnormal findings on diagnostic imaging of other specified body structures (principal); R91.8 Other nonspecific abnormal finding of lung field; M25.551 Pain in right hip; M25.552 Pain in left hip | CPT/HCPCS: 71250; 73522 ==

== ENCOUNTER → 2024-10-05 16:42 | Outpatient (REF) | payer MEDICARE, OTHER, SELFPAY | LOC: RAD 16:42 | PROVIDERS: ATTENDING PHYSICIAN Family Medicine | DX: R60.0 Localized edema (principal) | CPT/HCPCS: 93971 ==

== ENCOUNTER 2024-10-11 11:29 | Inpatient (IN) | payer MEDICARE, OTHER, SELFPAY ==
[2024-10-10] VITALS (7 sets, daily range): BP systolic 149–178; BP diastolic 73–98; BMI 20.4
--- NOTE | 2024-10-10 15:45 | ED.GENMED ---
ED Provider Triage
<Lemuel Hernandez PA-C - Last Filed: 10/10/24 15:46>
-
Patient seen by provider in Triage?: Seen in Triage
Attestation: A medical screening examination has been initiated by a qualified medical provider. Based on the assessment performed at this time, it has been determined that an emergent medical condition may exist and the patient has been informed
that further medical evaluation and possible additional diagnostic testing may be needed.
HPI: 69-year-old female with chronic back pain presents today complaining of sudden onset back pain while vacuuming. She bent over to move a table and felt a pop in her back. She now has lower back pain that radiates down the left leg. No bowel
or bladder dysfunction. She is typically on Percocet twice a day for her chronic pain. She was due for an epidural steroid injection today. X-rays lumbar spine ordered
GENERAL: Alert , in no apparent distress
EYE: No visual abnormalities.
NECK: Trachea midline
ENT: No visible abnormalities.
LUNGS: No acute respiratory distress
NEUROLOGICAL: Alert and oriented
SKIN: Skin intact. No visible changes.
MUSCULOSKELETAL: Moving extremities normally
PSYCH: Normal and appropriate interaction.
This is a medical evaluation conducted in person to initiate diagnostic evaluation and provide initial therapeutics. Please see further documentation by the treating clinician.
History of Present Illness
<Lemuel Hernandez PA-C - Last Filed: 10/10/24 15:46>
General
Chief Complaint: Back Pain
Time Seen by Provider: 10/10/24 16:01
<Lasha Okeefe DO - Last Filed: 10/10/24 20:11>
History of Present Illness
History of Present Illness:
TIME OF INITIAL ENCOUNTER: 4:05 PM
HPI: Patient presents with low back pain. She was putting an end table back and was flexed forward putting forward and as she threw it up had severe pain. She came in by EMS because the pain was so severe and she could barely walk. She has
chronic low back pain she was supposed to see pain management today but the pain was so severe she came in here by ambulance instead. She normally takes Percocet twice daily. She was supposed to get a lumbar epidural. She does not see a spine
specialist.
EXAM:
GENERAL: Well appearing but appears somewhat uncomfortable
HEENT: Moist oral mucosa
NEUROLOGIC: Excellent strength all extremities, no obvious coordination deficits, she has excellent strength in an L5 and S1 distribution
BACK: Diffuse tenderness to palpation of the low back more so toward the midline, borderline positive straight leg raise bilaterally
PSYCHIATRIC: Appropriate mental status, normal insight and judgement
EXTREMITIES: Nontender, no edema, moves all extremities equally
SKIN: No rash, no lesions
NUMBER AND COMPLEXITY OF PROBLEMS ADDRESSED AT THE ENCOUNTER
� Chronic conditions affecting care: Chronic low back pain, migraines, diverticular disease, GERD, anxiety/depression
� Acute Exacerbation and/or Progression of Chronic Illness: This is an acute exacerbation of a chronic problem
� Differential Diagnosis includes: Acute exacerbation of chronic low back pain, acute fracture
AMOUNT AND/OR COMPLEXITY OF DATA TO BE REVIEWED AND ANALYZED
� I performed an independent evaluation of and my interpretation is:
EKG:
CT:
X-rays: X-ray suggests a L2 superior endplate fracture
Laboratory Studies: Seen 0.2, hemoglobin 11.5, sodium slightly low at 127
Other:
� Review of other/old records: I reviewed records, the patient is not here frequently with pain related concerns
� Clinical information was obtained by an independent historian: None needed
� Prescriptions/Medications Considered but not given:
� Further testing considered but not performed:
RISK OF COMPLICATIONS AND/OR MORBIDITY OR MORTALITY OF PATIENT MANAGEMENT
� Social determinants of health affecting care: Lives at home
� Discussion with other providers: Hospitalist for admission for further pain control +/- MRI L-spine
� Escalation of care including admission/observation vs risk of discharge considered: We gave patient an extra dose of her Percocet that she would normally take (gave to when she would normally take 1) and also gave a dose of
Toradol IM. X-ray does show an L2 superior endplate fracture. However, the patient denies any direct trauma.
ANY OTHER UPDATES:
On reassessment after meds given, the patient reports minimal if any improvement. She was given a double dose of her usual narcotic and was also given IM Toradol. Although not clearly present on exam, she reports weakness and thinks she may need
an MRI. I reviewed records, she has not had a recent MRI of the L-spine here. Leukocytosis noted which could be related to pain.
Phy Exam
<Lasha Okeefe DO - Last Filed: 10/10/24 20:11>
Physical Exam
Physical Exam:
See HPI
Course
<Lemuel Hernandez PA-C - Last Filed: 10/10/24 15:46>
Orders/Labs/Results
Orders:
Orders
10/10/24 15:44
CR Lumbar Spine 2 Or 3 Views Urgent
Comment:
Reason For Exam: back pain
10/10/24 16:17
Ketorolac [Toradol] 30 mg IM NOW STA
Oxycodone/Acetaminophen [Percocet 5/325] 1 tablet PO NOW STA
10/10/24 16:21
Oxycodone/Acetaminophen [Percocet 5/325] 1 tablet PO NOW STA
10/10/24 18:14
HYDROmorphone [Dilaudid] 0.5 mg IV NOW STA
Ondansetron Injectable [Zofran] 4 mg IV NOW STA
10/10/24 18:43
Basic Metabolic Panel Urgent
Complete Blood Count/With Diff Urgent
Abnormal Lab Results
10/10/24
18:43
WBC 16.2 H 10^3/uL
(4.8-10.8)
RBC 3.87 L 10^6/uL
(4.20-5.40)
Hgb 11.5 L g/dL
(12.0-16.0)
Hct 35.1 L %
(37.0-47.0)
MCHC 32.8 L g/dL
(33.0-37.0)
Abs Immat Gran (auto) 0.1 H 10^3/uL
(0-0.05)
Absolute Neuts (auto) 14.2 H 10^3/uL
(1.4-6.5)
Absolute Lymphs (auto) 0.8 L 10^3/uL
(1.2-3.4)
Absolute Monos (auto) 1.1 H 10^3/uL
(0.1-0.6)
Immature Gran % 0.7 H %
(0-0.5)
Neutrophils % 87.4 H %
(42.2-75.2)
Lymphocytes % 5.0 L %
(20.5-51.1)
Sodium 127 L mmol/L
(135-145)
Chloride 94 L mmol/L
(98-107)
Glucose 110 H mg/dl
(70-99)
10/10/24 18:43
10/10/24 18:43
Vital Signs
Initial and Last Documented VS:
Initial Vital Signs
Temp Pulse Resp BP Pulse Ox
36.9 C 93 20 173/98 100
10/10/24 15:37 10/10/24 15:37 10/10/24 15:37 10/10/24 15:37 10/10/24 15:37
Last Documented Vital Signs
Temp Pulse Resp BP Pulse Ox
36.9 C 71 16 153/79 96
10/10/24 15:37 10/10/24 19:22 10/10/24 19:22 10/10/24 19:15 10/10/24 19:22
<Lasha Coreas Maldonado, DO - Last Filed: 10/10/24 20:11>
Orders/Labs/Results
Orders:
Orders
10/10/24 15:44
CR Lumbar Spine 2 Or 3 Views Urgent
Comment:
Reason For Exam: back pain
10/10/24 16:17
Ketorolac [Toradol] 30 mg IM NOW STA
Oxycodone/Acetaminophen [Percocet 5/325] 1 tablet PO NOW STA
10/10/24 16:21
Oxycodone/Acetaminophen [Percocet 5/325] 1 tablet PO NOW STA
10/10/24 18:14
HYDROmorphone [Dilaudid] 0.5 mg IV NOW STA
Ondansetron Injectable [Zofran] 4 mg IV NOW STA
10/10/24 18:43
Basic Metabolic Panel Urgent
Complete Blood Count/With Diff Urgent
Abnormal Lab Results
10/10/24
18:43
WBC 16.2 H 10^3/uL
(4.8-10.8)
RBC 3.87 L 10^6/uL
(4.20-5.40)
Hgb 11.5 L g/dL
(12.0-16.0)
Hct 35.1 L %
(37.0-47.0)
MCHC 32.8 L g/dL
(33.0-37.0)
Abs Immat Gran (auto) 0.1 H 10^3/uL
(0-0.05)
Absolute Neuts (auto) 14.2 H 10^3/uL
(1.4-6.5)
Absolute Lymphs (auto) 0.8 L 10^3/uL
(1.2-3.4)
Absolute Monos (auto) 1.1 H 10^3/uL
(0.1-0.6)
Immature Gran % 0.7 H %
(0-0.5)
Neutrophils % 87.4 H %
(42.2-75.2)
Lymphocytes % 5.0 L %
(20.5-51.1)
Sodium 127 L mmol/L
(135-145)
Chloride 94 L mmol/L
(98-107)
Glucose 110 H mg/dl
(70-99)
10/10/24 18:43
10/10/24 18:43
Vital Signs
Initial and Last Documented VS:
Initial Vital Signs
Temp Pulse Resp BP Pulse Ox
36.9 C 93 20 173/98 100
10/10/24 15:37 10/10/24 15:37 10/10/24 15:37 10/10/24 15:37 10/10/24 15:37
Last Documented Vital Signs
Temp Pulse Resp BP Pulse Ox
36.9 C 71 16 153/79 96
10/10/24 15:37 10/10/24 19:22 10/10/24 19:22 10/10/24 19:15 10/10/24 19:22
<Lasha Okeefe DO - Last Filed: 10/10/24 20:11>
*Critical Care Note
Total Time (30-74mins, 75-104mins- exclusive of procedures): Not Applicable
ED Attending Note
<Lemuel Hernandez PA-C - Last Filed: 10/10/24 15:46>
-
Portions of this chart may have been created with voice recognition software.� Occasional wrong word or��sound alike� substitutions may have occurred due to the inherent limitations of voice recognition software.
Discharge Plan
Departure
Patient Disposition: Admit
Date of Disposition: 10/10/24
Time of Disposition: 18:20
Presentation/result/management discussed w/ accepting MD/DO: Hospitalist
Patient with high blood pressure during this ER visit?: Yes
Discharge Problem:
Intractable low back pain
Prescriptions:
No Action
acetaminophen 500 mg Tablet
500 mg PO BID
esomeprazole magnesium [Nexium] 40 mg Capsule,Delayed Release(Dr/Ec)
40 mg PO DAILY
zaleplon 10 mg Capsule
10 mg PO HS
hydroxychloroquine [Plaquenil] 200 mg Tablet
200 mg PO BID
atenolol 50 mg Tablet
50 mg PO BID
fluticasone furoate-vilanterol [Breo Ellipta] 200-25 mcg/dose Blister With Device
1 inh INHALATION R QPM
guaifenesin 400 mg Tablet
400 mg PO TID
polyethylene glycol 3350 [Miralax] 17 gram Powder In Packet
17 g PO HS
prednisone 10 mg Tablet
20 mg PO .TAPER
Patient Comments:
10/10/24: to taper from 20mg QD to 10mg QD, then resume normal 5mg QD dosage
azithromycin 250 mg Tablet
250 mg PO MOWEFR
oxycodone-acetaminophen 5-325 mg Tablet
1 tab PO BID
losartan 25 mg Tablet
25 mg PO BID
albuterol sulfate 90 mcg/actuation Hfa Aerosol Inhaler
2 puff INHALATION R Q4HPRN PRN (Reason: sob)
cholecalciferol (vitamin D3) [Vitamin D3] 50 mcg (2,000 unit) Tablet
50 mcg PO QPM
Referrals:
Fariba Manriquez DO [Family Provider] -
Interventions
Interventions:
*Risk Screen - Suicide Last Done: 10/10/24 15:37
*General Assessment Last Done: 10/10/24 15:37
*Neglect/Abuse Screening Last Done: 10/10/24 15:37
ED- Fall Risk Assessment Last Done: 10/10/24 19:22
*ED COVID-19 Vaccine History Last Done: 10/10/24 16:18
ED-Musculoskeletal Assessment Last Done: 10/10/24 16:19
Discharge Date and Time
Print Language: ZAMBIAN
[2024-10-10] MEDS: PERCOCET 5/325 1 TABLET PO ×2 (16:24)
[2024-10-10] MEDS: TORADOL 30 MG IM (16:25)
[2024-10-10] MEDS: DILAUDID 0.5 MG IV (18:45)
[2024-10-10] MEDS: ZOFRAN 4 MG IV (18:45)
[2024-10-10 18:57] LABS: % Basophils 0.2 % (0-2); % Immature Granulocytes 0.7 % (0-0.5); % Monocytes 6.7 % (1.7-9.3); % Neutrophils 87.4 % (42.2-75.2); Absolute Immature Granulocytes 0.1 10^3/uL (0-0.05); Absolute Lymphocytes 0.8 10^3/uL (1.2-3.4); Absolute Monocytes 1.1 10^3/uL (0.1-0.6); Absolute Neutrophils 14.2 10^3/uL (1.4-6.5); Hematocrit 35.1 % (37.0-47.0); Hemoglobin 11.5 g/dL (12.0-16.0); Mean Corp Hgb Conc. 32.8 g/dL (33.0-37.0); Mean Corpuscular Hgb 29.7 pg (27.0-31.0); Mean Corpuscular Volume 90.7 fL (81.0-99.0); Mean Platelet Volume 8.2 fL (7.4-10.4); Nucleated Red Blood Cells % 0 %; Platelet Count 266 10^3/uL (130-400); Red Blood Cell Count 3.87 10^6/uL (4.20-5.40); Red Cell Dist. Width 13.1 % (11.5-14.5); White Blood Cell Count 16.2 10^3/uL (4.8-10.8)
[2024-10-10 19:08] LABS: Blood Urea Nitrogen 11 mg/dl (7-17); Calcium 9.6 mg/dl (8.4-10.2); Carbon Dioxide 23 mmol/L (22-30); Chloride 94 mmol/L (98-107); Estimated Creatinine Clearance 66 ml/min; Glucose 110 mg/dl (70-99); Potassium 4.1 mmol/L (3.5-5.1); Sodium 127 mmol/L (135-145); eGFR > 60.00
--- NOTE | 2024-10-10 20:53 | HPS.HSE ---
Family Physician
-
Family Physician: Fariba Manriquez
Chief Complaint
-
back pain
History of Present Illness
69-year-old female past medical history of emphysema, tobacco use, chronic pain syndrome, anxiety/depression, fibromyalgia, asthma, GERD, diverticulitis, arthritis, Raynaud's syndrome, hyperlipidemia, lupus on chronic steroids currently on steroid
taper, presenting with acute on chronic back pain. She has chronic lower back pain which has been particularly worse for the past 5 weeks. Today she was bending over to move a table and felt a pop in her back with severe pain. She was scheduled
to have an epidural injection today could not make it to the appointment because of severe pain. Pain is radiating down both legs. Denies any bowel or bladder dysfunction. Denies numbness or tingling. Denies fevers or chills.
She was recently treated for pneumonia.
Medical History
Past Medical History
Past Medical History: Reports Other (emphysema, tobacco use, chronic pain syndrome, anxiety/depression, fibromyalgia, asthma, GERD, diverticulitis, arthritis, Raynaud's syndrome, hyperlipidemia, lupus on chronic steroids currently on steroid taper)
Past Surgical History: Reports None
Social History
Tobacco: Non-smoker
Alcohol: None
Drug: None
Family History
Family History: Not pertinent
Allergies / Home Medications
Allergies reflects when Allergies were last updated in [employer].
Home Medications with original date entered in [employer]
Allergy/Medication List:
Allergies
Allergy/AdvReac Type Severity Reaction Status Date / Time
Sulfa (Sulfonamide Allergy GI UPSET Verified 10/10/24 15:41
Antibiotics)
Home Medications
acetaminophen 500 mg tablet 500 mg PO BID Pain 12/08/23
atenolol 50 mg tablet 50 mg PO BID Blood Pressure 12/08/23
esomeprazole magnesium 40 mg capsule,delayed release (Nexium) 40 mg PO DAILY Gastrointestinal Issue 12/08/23
fluticasone furoate 200 mcg-vilanterol 25 mcg/dose inhalation powder (Breo Ellipta) 1 inh inhalation R QPM Lung/Breathing Issues 12/08/23
hydroxychloroquine 200 mg tablet (Plaquenil) 200 mg PO BID Lupus 12/08/23
zaleplon 10 mg capsule 10 mg PO HS Sleep 12/08/23
guaifenesin 400 mg tablet 400 mg PO TID Cough 01/03/24
polyethylene glycol 3350 17 gram oral powder packet (Miralax) 17 g PO HS Constipation 01/03/24
albuterol sulfate 90 mcg/actuation aerosol inhaler 2 puff inhalation R Q4HPRN PRN sob 10/10/24
azithromycin 250 mg tablet 250 mg PO MOWEFR 10/10/24
cholecalciferol (vitamin D3) 50 mcg (2,000 unit) tablet (Vitamin D3) 50 mcg PO QPM 10/10/24
losartan 25 mg tablet 25 mg PO BID 10/10/24
oxycodone-acetaminophen 5 mg-325 mg tablet 1 tab PO BID 10/10/24
prednisone 10 mg tablet 20 mg PO .TAPER 10/10/24
Review of Systems
-
History Source: Patient
A 12 point ROS was completed and negative except as noted: Yes
Constitutional: Reports No Symptoms
EENT: Reports No Symptoms
Respiratory: Reports No Symptoms
Cardiac: Reports No Symptoms
Abdomen/GI: Reports No Symptoms
: Reports No Symptoms
Musculoskeletal: Reports No Symptoms
Skin: Reports No Symptoms
Neurological: Reports No Symptoms
Endocrine: Reports No Symptoms
Hematologic/Lymphatic: Reports No Symptoms
Psych: Reports No Symptoms
Physical Exam
Vital Signs
Vital Signs
Temp Pulse Resp BP Pulse Ox
98.4 F 71 16 153/79 96
10/10/24 15:37 10/10/24 19:22 10/10/24 19:22 10/10/24 19:15 10/10/24 19:22
Physical Exam
General: Well Developed, Well Nourished and No Apparent Distress
HEENT: NormoCephalic, Moist mucous membranes and Atraumatic
Respiratory: Clear
Cardiac: S1/S2 and Regular Rhythm; No Murmur or Rub
GI: Soft, Non Tender, Non Distended and Normal Bowel Sounds; No Organomegaly
Rectal: Deferred by Provider
Musculoskeletal: No Clubbing, No Cyanosis, No Edema and Other (tender mid back )
Skin: No Rash
Neuro: Nonfocal/grossly intact
Laboratory Results
-
10/10/24 18:43
10/10/24 18:43
Data Reviewed
-
Lab Data: Labs Reviewed by me
Old Records: Reviewed
Impression/Plan
-
IMPRESSION:
PLAN:
# L2 compression fracture secondary to chronic steroids/osteoporosis
-Lumbar x-ray shows mild compression fracture of L2 superior endplate
-Leukocytosis likely reactive
-Dilaudid for pain
-Lidocaine patch
-PT/OT/case management
# Worsening of chronic hyponatremia likely SIADH secondary to pain
-Check urine sodium, osmolality
-Fluid restriction
# Leukocytosis secondary to steroids
-Continue to monitor
Emphysema
-Continue inhalers, Breo
-Continue azithromycin
Essential hypertension
-Continue atenolol, losartan
Tobacco use
Chronic pain
Anxiety/depression
Fibromyalgia
Asthma
GERD
-Continue esomeprazole
Diverticulitis
Raynaud's syndrome
Hyperlipidemia
Lupus
-Continue hydroxychloroquine
-Continue prednisone taper
Chronic anemia
-Stable
Insomnia
-Continue zaleplon
Full code
DVT prophylaxis�heparin
Regular diet
[2024-10-10] MEDS: DILAUDID 1 MG IV (21:17)
[2024-10-10 21:42] LABS: Osmolality Urine 175 mOsm/kg (300-900)
[2024-10-10 21:48] LABS: Urine Sodium 28 mmol/L (30-90)
[2024-10-10] MEDS: ZITHROMAX PO (22:22)
[2024-10-10] MEDS: MIRALAX 17 GRAMS PO (22:23)
[2024-10-10] MEDS: MUCINEX 600 MG PO (22:23)
[2024-10-11] VITALS (16 sets, daily range): BP systolic 119–164; BP diastolic 58–94; BMI 19.7
[2024-10-11] MEDS: DILAUDID 1 MG IV ×2 (03:10→09:01)
[2024-10-11] MEDS: ZOFRAN 4 MG IV ×2 (03:50→10:50)
[2024-10-11 04:24] LABS: % Basophils 0.2 % (0-2); % Eosinophils 0.6 % (0-6); % Immature Granulocytes 0.4 % (0-0.5); % Lymphocytes 24.4 % (20.5-51.1); % Monocytes 8.7 % (1.7-9.3); % Neutrophils 65.7 % (42.2-75.2); Absolute Eosinophils 0.1 10^3/uL (0-0.7); Absolute Monocytes 0.7 10^3/uL (0.1-0.6); Absolute Neutrophils 5.3 10^3/uL (1.4-6.5); Hematocrit 31.4 % (37.0-47.0); Hemoglobin 10.6 g/dL (12.0-16.0); Mean Corp Hgb Conc. 33.8 g/dL (33.0-37.0); Mean Corpuscular Hgb 29.7 pg (27.0-31.0); Mean Platelet Volume 8.2 fL (7.4-10.4); Nucleated Red Blood Cells % 0 %; Platelet Count 219 10^3/uL (130-400); Red Blood Cell Count 3.57 10^6/uL (4.20-5.40); Red Cell Dist. Width 12.8 % (11.5-14.5); White Blood Cell Count 8.1 10^3/uL (4.8-10.8)
[2024-10-11 04:45] LABS: ALT (SGPT) 20 U/L (0-35); AST (SGOT) 24 U/L (14-36); Albumin 3.7 g/dl (3.5-5.0); Alkaline Phosphatase 79 U/L (38-126); Blood Urea Nitrogen 10 mg/dl (7-17); Calcium 9.3 mg/dl (8.4-10.2); Carbon Dioxide 23 mmol/L (22-30); Chloride 99 mmol/L (98-107); Estimated Creatinine Clearance 66 ml/min; Glucose 92 mg/dl (70-99); Potassium 4.1 mmol/L (3.5-5.1); Sodium 129 mmol/L (135-145); Total Bilirubin 0.5 mg/dl (0.2-1.3); Total Protein 5.6 g/dl (6.3-8.2); eGFR > 60.00
[2024-10-11] MEDS: SYMBICORT 160/4.5 MCG INHALER 2 PUFF INH ×2 (08:21→19:49)
[2024-10-11] MEDS: TYLENOL 500 MG PO (08:31)
[2024-10-11] MEDS: LIDOCAINE 4% PATCH 1 PATCH TOPICAL (08:31)
[2024-10-11] MEDS: HEPARIN 5000 UNITS SC (08:31)
[2024-10-11] MEDS: MUCINEX 600 MG PO ×2 (08:32→21:03)
[2024-10-11] MEDS: COZAAR 25 MG PO ×2 (08:32→21:03)
[2024-10-11] MEDS: PROTONIX 40 MG PO (08:32)
[2024-10-11] MEDS: NICODERM TRANSDERMAL 14 MG TRANSDERM (08:32)
[2024-10-11] MEDS: TENORMIN 50 MG PO ×2 (08:32→21:02)
[2024-10-11] MEDS: DELTASONE 20 MG PO (08:33)
[2024-10-11] MEDS: PLAQUENIL 200 MG PO ×2 (09:05→21:03)
--- NOTE | 2024-10-11 09:20 | W.PN.HOSP.TC ---
Today's Communication/Plan
-
see bold
Assessment / Plan
Assessment / Plan
# L2 compression fracture secondary to chronic steroids/osteoporosis
-Lumbar x-ray shows mild compression fracture of L2 superior endplate
-Leukocytosis likely reactive
-Acetaminophen 1 g 3 times daily, lidocaine patch, oxycodone 5 mg for moderate pain, oxycodone 10 mg for severe pain
-Laxatives, PT/OT
# Worsening of chronic hyponatremia likely SIADH secondary to pain
-Check TSH and free T4
-Fluid restriction, trend Na
# Leukocytosis secondary to steroids
-Continue to monitor
Emphysema
-Continue inhalers, Breo
-Continue azithromycin
Essential hypertension
-Continue atenolol, losartan
Tobacco use
Chronic pain
Anxiety/depression
Fibromyalgia
Asthma
GERD
-Continue esomeprazole
Diverticulitis
Raynaud's syndrome
Hyperlipidemia
Lupus
-Continue hydroxychloroquine
-Continue prednisone taper
Chronic anemia
-Stable
Insomnia
-Continue zaleplon
DVT prophylaxis�subcu Lovenox
Full code
Total time spent to see the patient on the floor, examine the patient, review data and lab results, discuss treatment plan with patient, nursing staff around 50 minutes.
Physical Exam
General: No acute distress
HEENT: Normocephalic, Atraumatic, EOMI, MMM
Respiratory: Clear to Auscultation bilaterally
Cardiac: Normal S1/S2, Regular Rate and Rhythm
GI: Soft, Nontender, Nondistended, Normal Bowel Sounds
Extremities: No Clubbing, Cyanosis
Neuro: Nonfocal/Grossly Intact
Psych: Calm, Cooperative
Anticipated Discharge: 24 - 48 hours
Subjective/Interval History
-
Date of Service: October 11, 2024
Patient complains of severe back pain. She also complains of severe nausea after receiving IV Dilaudid. No fever, no vomiting. No chest pain, no shortness of breath.
Objective Data
-
Labs:
Laboratory Results
10/11/24
03:56
WBC 8.1
Hgb 10.6 L
Hct 31.4 L
Plt Count 219
Sodium 129 L
Potassium 4.1
Chloride 99
Carbon Dioxide 23
BUN 10
Creatinine 0.7
Glucose 92
Calcium 9.3
Total Bilirubin 0.5
AST 24
ALT 20
Alkaline Phosphatase 79
Vital Signs:
Vital Signs
Temp Pulse Resp BP Pulse Ox
98.3 F 67 16 119/68 97
10/11/24 07:46 10/11/24 08:32 10/11/24 08:27 10/11/24 08:32 10/11/24 08:27
[2024-10-11] MEDS: SENOKOT-S PO ×2 (09:59→20:38)
[2024-10-11] MEDS: ROXICODONE 10 MG PO ×3 (14:02→23:08)
[2024-10-11] MEDS: TYLENOL 1000 MG PO ×2 (15:26→21:03)
[2024-10-11] MEDS: ROXICODONE 5 MG PO (16:51)
[2024-10-11] MEDS: LOVENOX SC (16:59)
[2024-10-11] MEDS: VITAMIN D3 (cholecalciferol) 50 MCG PO (16:59)
--- NOTE | 2024-10-11 17:00 | PTCARENOTE ---
pt presents from ED via wheelchair. pt is AAO*3, Vss, room air. pt c/o pain in her lower back. gave 5 mg Cee as per ordered. pt is oriented to the room. call pardo within the reach. plan of care ongoing.
[2024-10-11] MEDS: MIRALAX 17 GRAMS PO (21:02)
[2024-10-12] MEDS: ROXICODONE 10 MG PO ×5 (04:33→21:53)
[2024-10-12 07:30] VITALS: BP 114/75
[2024-10-12] MEDS: SYMBICORT 160/4.5 MCG INHALER 2 PUFF INH ×2 (08:18→20:21)
[2024-10-12 08:22] LABS: Blood Urea Nitrogen 8 mg/dl (7-17); Calcium 9.4 mg/dl (8.4-10.2); Carbon Dioxide 29 mmol/L (22-30); Chloride 100 mmol/L (98-107); Estimated Creatinine Clearance 63 ml/min; Glucose 91 mg/dl (70-99); Potassium 4.2 mmol/L (3.5-5.1); Sodium 134 mmol/L (135-145); eGFR > 60.00
[2024-10-12] MEDS: PROTONIX 40 MG PO (08:42)
[2024-10-12] MEDS: TYLENOL 1000 MG PO ×3 (08:42→21:10)
[2024-10-12] MEDS: TENORMIN 50 MG PO ×2 (08:43→20:12)
[2024-10-12] MEDS: PLAQUENIL 200 MG PO ×2 (08:43→20:09)
[2024-10-12] MEDS: COZAAR 25 MG PO ×2 (08:43→20:09)
[2024-10-12] MEDS: DELTASONE 20 MG PO (08:43)
[2024-10-12] MEDS: MUCINEX 600 MG PO ×2 (08:43→20:11)
[2024-10-12] MEDS: LIDOCAINE 4% PATCH 1 PATCH TOPICAL (08:44)
[2024-10-12] MEDS: NICODERM TRANSDERMAL 14 MG TRANSDERM (08:44)
[2024-10-12] MEDS: ZITHROMAX 250 MG PO (08:48)
--- NOTE | 2024-10-12 08:48 | W.PN.HOSP.TC ---
Today's Communication/Plan
-
see bold
Assessment / Plan
Assessment / Plan
# L2 compression fracture secondary to chronic steroids/osteoporosis
-Lumbar x-ray shows mild compression fracture of L2 superior endplate
-Leukocytosis likely reactive
-Acetaminophen 1 g 3 times daily, lidocaine patch, oxycodone 5 mg for moderate pain, oxycodone 10 mg for severe pain
-Laxatives, PT/OT - rec HH
# Worsening of chronic hyponatremia likely SIADH secondary to pain
-TSH and free T4 normal
-Fluid restriction, trend Na
# Leukocytosis secondary to steroids
-Continue to monitor
#Left tib pain
Check XR
Emphysema
-Continue inhalers, Breo
-Continue azithromycin
Essential hypertension
-Continue atenolol, losartan
Tobacco use
Chronic pain
Anxiety/depression
Fibromyalgia
Asthma
GERD
-Continue esomeprazole
Diverticulitis
Raynaud's syndrome
Hyperlipidemia
Lupus
-Continue hydroxychloroquine
-Continue prednisone taper
Chronic anemia
-Stable
Insomnia
-Continue zaleplon
DVT prophylaxis�subcu Lovenox
Full code
Total time spent to see the patient on the floor, examine the patient, review data and lab results, discuss treatment plan with patient, nursing staff around 40 minutes.
Physical Exam
General: No acute distress
HEENT: Normocephalic, Atraumatic, EOMI, MMM
Respiratory: Clear to Auscultation bilaterally
Cardiac: Normal S1/S2, Regular Rate and Rhythm
GI: Soft, Nontender, Nondistended, Normal Bowel Sounds
Extremities: No Clubbing, Cyanosis
Neuro: Nonfocal/Grossly Intact
Psych: Calm, Cooperative
Anticipated Discharge: 24 - 48 hours
Subjective/Interval History
-
Date of Service: October 12, 2024
Patient complains of severe back pain, 8 out of 10 in intensity. She also complains of pain in her left hip. No fever, no vomiting.
Objective Data
-
Labs:
Laboratory Results
10/12/24
06:48
Sodium 134 L
Potassium 4.2
Chloride 100
Carbon Dioxide 29
BUN 8
Creatinine 0.7
Glucose 91
Calcium 9.4
Vital Signs:
Vital Signs
Temp Pulse Resp BP Pulse Ox
98.3 F 73 18 114/75 98
10/12/24 07:30 10/12/24 07:30 10/12/24 07:30 10/12/24 07:30 10/12/24 07:30
[2024-10-12] MEDS: SENOKOT-S PO ×2 (08:53→20:11)
[2024-10-12 08:55] LABS: Cortisol, Random 1.2 ug/dl; TSH Reflex To Free T4 1.08 uIU/ml (0.47-4.68)
[2024-10-12 11:03] VITALS: BP 160/80; PULSE 85; O2SAT 98
[2024-10-12 11:04] VITALS: BP 160/86; PULSE 85; O2SAT 98
--- NOTE | 2024-10-12 14:23 | VNURNOTE ---
Home Health Liaison met with patient at bedside to discuss [facility] nurse/therapy, visits, schedule and homebound status. Patient is agreeable and understands that visits at home will be 2-3 x per week to assess and teach medical management. Patient
is aware that [facility] will contact them for start of care in 1-2 days after discharge from .
[facility] referral completed in [facility].
[2024-10-12 15:12] VITALS: BP 128/64
--- NOTE | 2024-10-12 16:56 | CM ---
Alert awake oriented patient who lives alone.She lives in a 2 story home with 1 steps to enter and 13 to bed bathroom. She is independent in driving and in all activities of daily living.Offered VN she requested [facility] . Raisa Boss set up VN.
Never had VN/SNF
Pharmacy [facility]
PCP Dr Manriquez
PLAN Home with [facility]
[2024-10-12] MEDS: SENOKOT-S 2 TABLET PO (17:43)
[2024-10-12] MEDS: VITAMIN D3 (cholecalciferol) 50 MCG PO (17:44)
[2024-10-12] MEDS: LOVENOX 40 MG SC (17:45)
[2024-10-12] MEDS: MIRALAX 17 GRAMS PO (21:08)
[2024-10-12 23:41] VITALS: BP 141/69
[2024-10-13] MEDS: ROXICODONE 10 MG PO ×5 (04:44→22:37)
[2024-10-13 06:41] LABS: Blood Urea Nitrogen 10 mg/dl (7-17); Calcium 9.5 mg/dl (8.4-10.2); Carbon Dioxide 28 mmol/L (22-30); Chloride 102 mmol/L (98-107); Estimated Creatinine Clearance 55 ml/min; Glucose 96 mg/dl (70-99); Potassium 4.3 mmol/L (3.5-5.1); Sodium 136 mmol/L (135-145); eGFR > 60.00
[2024-10-13 07:05] VITALS: BP 123/65
[2024-10-13] MEDS: SYMBICORT 160/4.5 MCG INHALER 2 PUFF INH ×2 (07:54→19:55)
--- NOTE | 2024-10-13 09:03 | W.PN.HOSP.TC ---
Today's Communication/Plan
-
Plan for discharge tomorrow
Assessment / Plan
Assessment / Plan
# L2 compression fracture secondary to chronic steroids/osteoporosis
-Lumbar x-ray shows mild compression fracture of L2 superior endplate
-Leukocytosis likely reactive
-Acetaminophen 1 g 3 times daily, lidocaine patch, oxycodone 5 mg for moderate pain, oxycodone 10 mg for severe pain
-Laxatives, PT/OT - rec HH
# Worsening of chronic hyponatremia likely SIADH secondary to pain
-TSH and free T4 normal
-Improving on fluid restriction, trend Na
# Leukocytosis secondary to steroids
-Continue to monitor
#Left tib pain
X-ray showing left knee osteoarthritis, small plantar calcaneal enthesophyte, diffuse bone demineralization
#Constipation
Give magnesium citrate, increase laxatives
Emphysema
-Continue inhalers, Breo
-Continue azithromycin
Essential hypertension
-Continue atenolol, losartan
Tobacco use
Chronic pain
Anxiety/depression
Fibromyalgia
Asthma
GERD
-Continue esomeprazole
Diverticulitis
Raynaud's syndrome
Hyperlipidemia
Lupus
-Continue hydroxychloroquine
-Continue prednisone taper
Chronic anemia
-Stable
Insomnia
-Continue zaleplon
DVT prophylaxis�subcu Lovenox
Full code
Total time spent to see the patient on the floor, examine the patient, review data and lab results, discuss treatment plan with patient, nursing staff around 43 minutes.
Physical Exam
General: No acute distress
HEENT: Normocephalic, Atraumatic, EOMI, MMM
Respiratory: Clear to Auscultation bilaterally
Cardiac: Normal S1/S2, Regular Rate and Rhythm
GI: Soft, Nontender, Nondistended, Normal Bowel Sounds
Extremities: No Clubbing, Cyanosis
Neuro: Nonfocal/Grossly Intact
Psych: Calm, Cooperative
Anticipated Discharge: Within 24 hours
Subjective/Interval History
-
Date of Service: October 13, 2024
Patient continues to have severe lower back and left leg pain. She is constipated. No fever, no vomiting.
Objective Data
-
Labs:
Laboratory Results
10/13/24
05:28
Sodium 136
Potassium 4.3
Chloride 102
Carbon Dioxide 28
BUN 10
Creatinine 0.8
Glucose 96
Calcium 9.5
Vital Signs:
Vital Signs
Temp Pulse Resp BP Pulse Ox
98.0 F 69 16 123/65 98
10/13/24 07:05 10/13/24 07:05 10/13/24 08:02 10/13/24 07:05 10/13/24 08:02
I&O
10/12/24 10/13/24 10/14/24
06:59 06:59 06:59
Intake Total 360 / 360
Balance 360 / 360
[2024-10-13] MEDS: TENORMIN 50 MG PO ×2 (09:36→20:27)
[2024-10-13] MEDS: MUCINEX 600 MG PO ×2 (09:36→20:31)
[2024-10-13] MEDS: PLAQUENIL 200 MG PO ×2 (09:36→20:30)
[2024-10-13] MEDS: PROTONIX 40 MG PO (09:36)
[2024-10-13] MEDS: DELTASONE 10 MG PO (09:36)
[2024-10-13] MEDS: TYLENOL 1000 MG PO ×2 (09:36→16:26)
[2024-10-13] MEDS: SENOKOT-S 2 TABLET PO (09:37)
[2024-10-13] MEDS: NICODERM TRANSDERMAL 14 MG TRANSDERM (09:37)
[2024-10-13] MEDS: COZAAR 25 MG PO ×2 (09:37→20:30)
[2024-10-13] MEDS: LIDOCAINE 4% PATCH 1 PATCH TOPICAL (09:37)
[2024-10-13] MEDS: MIRALAX 17 GRAMS PO (09:52)
[2024-10-13] MEDS: ROXICODONE 5 MG PO (11:47)
[2024-10-13 15:00] VITALS: BP 144/79
[2024-10-13] MEDS: CITROMA 300 ML PO (15:02)
[2024-10-13] MEDS: VITAMIN D3 (cholecalciferol) 50 MCG PO (17:45)
[2024-10-13] MEDS: LOVENOX 40 MG SC (17:45)
[2024-10-13] MEDS: SENOKOT-S PO (20:30)
[2024-10-13] MEDS: MIRALAX PO (20:30)
[2024-10-13] MEDS: TYLENOL PO (22:19)
[2024-10-13 23:24] VITALS: BP 169/79
[2024-10-14 03:15] VITALS: BP 127/68
[2024-10-14] MEDS: ROXICODONE 10 MG PO ×3 (03:18→17:57)
[2024-10-14 06:24] LABS: Blood Urea Nitrogen 9 mg/dl (7-17); Calcium 9.8 mg/dl (8.4-10.2); Carbon Dioxide 28 mmol/L (22-30); Chloride 101 mmol/L (98-107); Estimated Creatinine Clearance 63 ml/min; Glucose 89 mg/dl (70-99); Potassium 4.2 mmol/L (3.5-5.1); Sodium 136 mmol/L (135-145); eGFR > 60.00
[2024-10-14 08:06] VITALS: BP 135/70
[2024-10-14] MEDS: MIRALAX 17 GRAMS PO ×2 (08:12→20:08)
[2024-10-14] MEDS: LIDOCAINE 4% PATCH 1 PATCH TOPICAL (08:13)
[2024-10-14] MEDS: PLAQUENIL 200 MG PO ×2 (08:14→20:02)
[2024-10-14] MEDS: DELTASONE 10 MG PO (08:14)
[2024-10-14] MEDS: MUCINEX 600 MG PO ×2 (08:14→20:01)
[2024-10-14] MEDS: PROTONIX 40 MG PO (08:14)
[2024-10-14] MEDS: TENORMIN 50 MG PO ×2 (08:15→20:02)
[2024-10-14] MEDS: SENOKOT-S 2 TABLET PO ×2 (08:15→20:01)
[2024-10-14] MEDS: TYLENOL PO (08:15)
[2024-10-14] MEDS: COZAAR 25 MG PO ×2 (08:15→20:01)
[2024-10-14] MEDS: NICODERM TRANSDERMAL 14 MG TRANSDERM (08:15)
[2024-10-14] MEDS: SYMBICORT 160/4.5 MCG INHALER 2 PUFF INH ×2 (08:24→19:58)
--- NOTE | 2024-10-14 08:38 | W.PN.HOSP.TC ---
Today's Communication/Plan
-
see bold
Assessment / Plan
Assessment / Plan
# L2 compression fracture secondary to chronic steroids/osteoporosis
-Lumbar x-ray shows mild compression fracture of L2 superior endplate
-Leukocytosis likely reactive
-Increase oxycodone 10 mg for moderate pain, oxycodone 15 mg for severe pain
-Continue lidocaine patch, patient requesting stopping acetaminophen as it is not helping her
-Obtain TLSO back brace. Start Cymbalta 20 mg daily for nerve pain. PT/OT - rec HH
# Worsening of chronic hyponatremia likely SIADH secondary to pain
-TSH and free T4 normal
-Improving on fluid restriction, trend Na
# Leukocytosis secondary to steroids
-Continue to monitor
#Left tib pain
X-ray showing left knee osteoarthritis, small plantar calcaneal enthesophyte, diffuse bone demineralization
#Constipation
Resolved s/p magnesium citrate, continue laxatives
Emphysema
-Continue inhalers, Breo
-Continue azithromycin
Essential hypertension
-Continue atenolol, losartan
Tobacco use
Chronic pain
Anxiety/depression
Fibromyalgia
Asthma
GERD
-Continue esomeprazole
Diverticulitis
Raynaud's syndrome
Hyperlipidemia
Lupus
-Continue hydroxychloroquine
-Continue prednisone taper
Chronic anemia
-Stable
Insomnia
-Continue zaleplon
DVT prophylaxis�subcu Lovenox
Full code
Total time spent to see the patient on the floor, examine the patient, review data and lab results, discuss treatment plan with patient, nursing staff around 52 minutes.
Physical Exam
General: No acute distress
HEENT: Normocephalic, Atraumatic, EOMI, MMM
Respiratory: Clear to Auscultation bilaterally
Cardiac: Normal S1/S2, Regular Rate and Rhythm
GI: Soft, Nontender, Nondistended, Normal Bowel Sounds
Extremities: No Clubbing, Cyanosis
Neuro: Nonfocal/Grossly Intact
Psych: Calm, Cooperative
Anticipated Discharge: Within 24 hours
Subjective/Interval History
-
Date of Service: October 14, 2024
Had BM. Continues to complain of severe lower back pain, 9 out of 10 in intensity. She is witnessed to be up in the room walking. No fever, no vomiting.
Objective Data
-
Labs:
Laboratory Results
10/14/24
05:39
Sodium 136
Potassium 4.2
Chloride 101
Carbon Dioxide 28
BUN 9
Creatinine 0.7
Glucose 89
Calcium 9.8
Vital Signs:
Vital Signs
Temp Pulse Resp BP Pulse Ox
98.1 F 93 16 135/70 100
10/14/24 08:06 10/14/24 08:28 10/14/24 08:28 10/14/24 08:15 10/14/24 08:28
I&O
10/13/24 10/14/24 10/15/24
06:59 06:59 06:59
Intake Total 360 / 360 960 / 960
Balance 360 / 360 960 / 960
[2024-10-14] MEDS: ROXICODONE 15 MG PO ×3 (11:24→20:20)
[2024-10-14] MEDS: CYMBALTA DELAYED RELEASE 20 MG PO (11:24)
[2024-10-14 16:02] VITALS: BP 129/71
[2024-10-14] MEDS: VITAMIN D3 (cholecalciferol) 50 MCG PO (17:57)
[2024-10-14] MEDS: LOVENOX SC (17:59)
[2024-10-14 23:40] VITALS: BP 137/70
[2024-10-15] MEDS: ROXICODONE 15 MG PO ×2 (00:20→06:48)
[2024-10-15 07:20] VITALS: BP 120/60
[2024-10-15 07:32] LABS: Blood Urea Nitrogen 8 mg/dl (7-17); Calcium 9.5 mg/dl (8.4-10.2); Carbon Dioxide 28 mmol/L (22-30); Chloride 100 mmol/L (98-107); Estimated Creatinine Clearance 55 ml/min; Glucose 93 mg/dl (70-99); Potassium 4.1 mmol/L (3.5-5.1); Sodium 134 mmol/L (135-145); eGFR > 60.00
[2024-10-15] MEDS: SYMBICORT 160/4.5 MCG INHALER 2 PUFF INH (08:05)
[2024-10-15] MEDS: LIDOCAINE 4% PATCH 1 PATCH TOPICAL (08:33)
[2024-10-15] MEDS: COZAAR 25 MG PO (08:34)
[2024-10-15] MEDS: MIRALAX PO (08:34)
[2024-10-15] MEDS: NICODERM TRANSDERMAL 14 MG TRANSDERM (08:34)
[2024-10-15] MEDS: SENOKOT-S PO (08:34)
[2024-10-15] MEDS: TENORMIN 50 MG PO (08:35)
[2024-10-15] MEDS: PROTONIX 40 MG PO (08:35)
[2024-10-15] MEDS: FLUSH (NSS) 1 FLUSH IV (08:35)
[2024-10-15] MEDS: MUCINEX 600 MG PO (08:35)
[2024-10-15] MEDS: PLAQUENIL 200 MG PO (08:35)
[2024-10-15] MEDS: CYMBALTA DELAYED RELEASE 20 MG PO (08:35)
[2024-10-15] MEDS: DELTASONE 10 MG PO (08:35)
--- NOTE | 2024-10-15 08:52 | W.PN.HOSP.TC ---
Today's Communication/Plan
-
Discharge
Assessment / Plan
Assessment / Plan
Gen-AAOx3, NAD
HEENT-NC, AT, anicteric, clear oral mm
Neck-supple
CV-reg, no M, +S1/S2
Lungs-clear B/L
Abd-soft, NT, ND
Ext-no edema
Musculoskeletal-no cyanosis, clubbing
Skin-warm and dry
Neuro-grossly non-focal
Psych-calm, cooperative
Acute L2 compression fracture secondary to chronic steroids/osteoporosis
-Lumbar x-ray shows mild compression fracture of L2 superior endplate
-Leukocytosis likely reactive
-Increase oxycodone 10 mg for moderate pain, oxycodone 15 mg for severe pain
-Continue lidocaine patch, patient requesting stopping acetaminophen as it is not helping her
-Obtain TLSO back brace. Start Cymbalta 20 mg daily for nerve pain. PT/OT - rec HH
Encouraged patient to follow-up with her director athletic to start treatment of osteoporosis.
Worsening of chronic hyponatremia likely SIADH secondary to pain. Continue fluid restriction.
-TSH and free T4 normal
Left tib pain
X-ray showing left knee osteoarthritis, small plantar calcaneal enthesophyte, diffuse bone demineralization
Constipation
Resolved s/p magnesium citrate, continue laxatives
COPD without exacerbation
-Continue inhalers, Breo
-Continue azithromycin
Essential hypertension
-Continue atenolol, losartan
Tobacco use
Chronic pain
Anxiety/depression
Fibromyalgia
Asthma
GERD
-Continue esomeprazole
Diverticulitis
Raynaud's syndrome
Hyperlipidemia
SLE
-Continue hydroxychloroquine
-Continue prednisone taper
Chronic anemia
-Stable
Insomnia
-Continue zaleplon
DVT prophylaxis�subcu Lovenox
Full code
Dispo -medically stable for discharge today. Follow-up with PCP and rheumatology.
35 minutes spent in discharge process.
Anticipated Discharge: Today
Subjective/Interval History
-
Date of Service: October 15, 2024
Patient seen and examined. Complaining of moderately severe lower back pain but improved compared to admission.
Objective Data
-
Labs:
Laboratory Results
10/15/24
06:40
Sodium 134 L
Potassium 4.1
Chloride 100
Carbon Dioxide 28
BUN 8
Creatinine 0.8
Glucose 93
Calcium 9.5
Vital Signs:
Vital Signs
Temp Pulse Resp BP Pulse Ox
98.9 F 75 18 120/60 99
10/15/24 07:20 10/15/24 08:35 10/15/24 08:08 10/15/24 08:35 10/15/24 08:31
I&O
10/14/24 10/15/24 10/16/24
06:59 06:59 06:59
Intake Total 960 / 960 1680 / 1680
Balance 960 / 960 1680 / 1680
Review of Systems
-
History Source: Patient
All other systems: Reviewed and negative
--- NOTE | 2024-10-15 09:02 | W.DS.TRANS ---
DC Summary - [facility]
-
Discharge Instructions:
Discharge Diagnosis/Procedures Lumbar L2 vertebral compression fracture
Diet Regular,Restrict fluids to 48 oz
Activity As tolerated,Other activity
Additional Activity Please use back brace when out of bed.
Driving Restrictions As prior to admission
Bathing Restrictions None
Instructions:
Stand-Alone Forms:
Changes to Home Medications: No
Discharge Medications:
DC Medications w/original date entered in [employer]
acetaminophen 500 mg tablet 500 mg PO BID Pain 12/08/23
atenolol 50 mg tablet 50 mg PO BID Blood Pressure 12/08/23
esomeprazole magnesium 40 mg capsule,delayed release (Nexium) 40 mg PO DAILY Gastrointestinal Issue 12/08/23
fluticasone furoate 200 mcg-vilanterol 25 mcg/dose inhalation powder (Breo Ellipta) 1 inh inhalation R QPM Lung/Breathing Issues 12/08/23
hydroxychloroquine 200 mg tablet (Plaquenil) 200 mg PO BID Lupus 12/08/23
zaleplon 10 mg capsule 10 mg PO HS Sleep 12/08/23
guaifenesin 400 mg tablet 400 mg PO TID Cough 01/03/24
polyethylene glycol 3350 17 gram oral powder packet (Miralax) 17 g PO HS Constipation 01/03/24
albuterol sulfate 90 mcg/actuation aerosol inhaler 2 puff inhalation R Q4HPRN PRN sob 10/10/24
azithromycin 250 mg tablet 250 mg PO MOWEFR Infection 10/10/24
cholecalciferol (vitamin D3) 50 mcg (2,000 unit) tablet (Vitamin D3) 50 mcg PO QPM Supplement 10/10/24
losartan 25 mg tablet 25 mg PO BID Blood Pressure 10/10/24
prednisone 10 mg tablet 20 mg PO .TAPER Anti-Inflammatory 10/10/24
nicotine 14 mg/24 hr daily transdermal patch 1 patch transdermal Q24H Nicotine Withdrawal 10/11/24
duloxetine 20 mg capsule,delayed release 20 mg PO DAILY #30 caps 10/15/24
lidocaine 4 % topical patch 1 patch topical DAILY #15 ea 10/15/24
oxycodone 5 mg tablet 5 mg PO Q4H PRN Pain #30 tabs 10/15/24
Home Medication Changes
Pending Results: No
[2024-10-15] MEDS: ZITHROMAX 250 MG PO (09:28)
[2024-10-15 11:00] VITALS: BP 125/70
--- NOTE | 2024-10-15 11:34 | CM ---
MD entered order for discharge.
Spoke with pt she said she was ready for dc.
Reviewed IMM letter with her . All questions answered.
She said her dgt Katie will drive her home today .
[facility] set up by L[facility] booker.
PLAN Home with [facility]
== END 2024-10-15 15:38 | disposition home health service (06) | DRG 543 ==
LOC: 4 EAST ACU 11:29
PROVIDERS: Family Medicine; ADMITTING PHYSICIAN Hospitalist; ATTENDING PHYSICIAN Hospitalist; EMERGENCY PHYSICIAN Emergency Medicine; FAMILY PHYSICIAN Family Medicine
DX: M80.08XA Age-related osteoporosis with current pathological fracture, vertebra(e), initial encounter for fracture (principal); E22.2 Syndrome of inappropriate secretion of antidiuretic hormone; K57.32 Diverticulitis of large intestine without perforation or abscess without bleeding; J43.9 Emphysema, unspecified; I10 Essential (primary) hypertension; J44.89 Other specified chronic obstructive pulmonary disease; G89.4 Chronic pain syndrome; F32.A Depression, unspecified; F41.9 Anxiety disorder, unspecified; M79.7 Fibromyalgia; K21.9 Gastro-esophageal reflux disease without esophagitis; I73.00 Raynaud's syndrome without gangrene; E78.5 Hyperlipidemia, unspecified; M32.9 Systemic lupus erythematosus, unspecified; T38.0X5A Adverse effect of glucocorticoids and synthetic analogues, initial encounter; X50.1XXA Overexertion from prolonged static or awkward postures, initial encounter; Z88.2 Allergy status to sulfonamides; Z79.899 Other long term (current) drug therapy; D72.829 Elevated white blood cell count, unspecified; D64.9 Anemia, unspecified; G47.00 Insomnia, unspecified; K59.00 Constipation, unspecified
CPT/HCPCS: 72100; 73590; 80048; 80053; 82533; 83935; 84300; 84443; 85025; 93005; 94640; 96372; 96374; 96375; 97116; 97163; 97167; 97530; 99284

== ENCOUNTER → 2024-10-29 15:35 | Outpatient (REF) | payer MEDICARE, OTHER, SELFPAY | LOC: PAVMRI 15:35 | PROVIDERS: ATTENDING PHYSICIAN Anesthesiology; FAMILY PHYSICIAN Family Medicine | DX: M54.16 Radiculopathy, lumbar region (principal) | CPT/HCPCS: 72148 ==

== ENCOUNTER → 2024-12-25 14:46 | Outpatient (REF) | payer MEDICARE, OTHER, SELFPAY | LOC: PAVMRI 14:46 | PROVIDERS: ATTENDING PHYSICIAN Orthopaedic Surgery; FAMILY PHYSICIAN Family Medicine | DX: M25.562 Pain in left knee (principal); M79.605 Pain in left leg | CPT/HCPCS: 73718 ==

== ENCOUNTER → 2025-01-11 15:02 | Outpatient (REF) | payer MEDICARE, OTHER, SELFPAY | LOC: HWRAD 15:02 | PROVIDERS: ATTENDING PHYSICIAN Internal Medicine Critical Care Medicine; FAMILY PHYSICIAN Family Medicine | DX: C34.31 Malignant neoplasm of lower lobe, right bronchus or lung (principal) | CPT/HCPCS: 71250 ==